=== PATIENT | female | born 1945 | race Caucasian/White ===

== ENCOUNTER 2020-03-28 08:01 | Outpatient (CLI) | payer MEDICARE, BC, SELFPAY ==
--- NOTE | ~2020-03-28 | MR_ITS ---
EXAMINATION: MR brain/brain stem wo/w con EXAM DATE: 03/28/2020 10:40 INDICATION: Repeated falls. TECHNIQUE: Magnetic resonance imaging (MRI) of the brain/brain stem obtained without contrast. Sagit keren T1, axial diffusion, gradient echo (T2*), T1, T2, FLAIR sequences obtained. Patient was then inj ected with 10 cc intravenous Multihance contrast. Axial and coronal postcontrast T1 weighted sequence s obtained. Comparison is made to prior examination from 01/16/2019, 09/02/2010. FINDINGS: There are no areas of restricted diffusion to suggest acute infarction. There is no acute hemorrhage seen on the T2*, a hemosiderin sensitive sequence. No intraparenchymal brain mass lesion. Gas There is mild to moderate periventricular and subcortical T2/FLAIR signal hyperintensity, nons pecific but probably related to small vessel ischemic disease (microangiopathy), with mild interval p rogression. There is ventricular prominence out of proportion to sulci which is suspected most like ly central atrophy rather than hydrocephalus. Normal pressure hydrocephalus cannot be excluded (clin ical triad ataxia/gait disturbance, dementia, urinary incontinence). There are no extra-axial colle ctions. Flow voids are seen in the cerebral arteries on the T2-weighted sequences consistent with th eir expected patency. Patient has had bilateral ocular lens surgery. There is a mass in the superficial lobe of the left parotid measuring 9 mm, could be primary parotid neoplasm or intraparotid lymph node. Margins are well-circumscribed. This appears unchanged compared to 2018, but can't specifically identify it in 2009. IMPRESSION: 1. No acute intracranial findings. 2. Slight progression microangiopathy. 3. Mildly dilated ventricles most likely central atrophy. NPH less likely. 4. Left parotid mass more likely benign histology but recommend ENT consult. Reviewed, dictated and finalized at location A.
[2020-03-28 09:18] LABS: Estimated Glomerular Filt Rate 58
== END 2020-03-28 08:02 | disposition home or self-care (01) ==
LOC: CHSIMG 08:02
PROVIDERS: PCP Family Medicine; Visit Provider Family Medicine
DX: S09.90XA Unspecified injury of head, initial encounter (principal); R29.6 Repeated falls
CPT/HCPCS: 70553; A9577

== ENCOUNTER 2020-04-23 12:45 | Outpatient (CLI) | payer MEDICARE, SELFPAY ==
--- NOTE | ~2020-04-23 | NM_ITS ---
EXAMINATION: ARTEMIO espazra renal scan DATE: 04/23/2020 14:46 INDICATION: Nephrolithiasis. Hydronephrosis. TECHNIQUE: 10.5 mCi Tc-99m MAG3 was administered IV. 40 mg furosemide was administered IV immediatel y afterward. The patient was scanned in the supine position. A posterior abdominal radionuclide angio gram was obtained. A subsequent time course of static images of the kidneys, ureters, and bladder was obtained. COMPARISON: 09/18/2019 FINDINGS: The posterior abdominal radionuclide angiogram and sequential static images show normal size, positio n, and morphology of the the right kidney. There is normal position of the left kidney with unchanged mild to moderate atrophy of the mid and upper left kidney and severe atrophy of the lower pole. Peak renal parenchymal uptake was 11.5 min in left kidney and 11.5 min in right kidney (normal peak 3-5 m inutes). The relative early renal uptake was 22% on the right and mid date% on the left (<40% is abn ormal). No abnormalities of the ureters or bladder are seen. T1/2 for clearance of activity from the left kidney and proximal collecting system was 35 minutes. T1/2 for clearance of activity from the right kidney and proximal collecting system was 11 minutes. Notes on interpretation: T1/2 <10 minutes is normal, 10-15 minutes is low grade obstruction of questi onable clinical significance, 15-20 minutes is partial obstruction that is likely clinically signific ant, >20 minutes is high grade obstruction. Note that false positives may be seen with supine positio jessica, dehydration, severely dilated nonobstructed kidney, atonic collecting system, poor renal functi on, and chronic furosemide use. IMPRESSION: 1. No no significant change in asymmetric decreased left renal function with left kidney contributin g 28% of total renal function. 2. Bilateral delayed renal activity clearance, mild on the right, potentially low-grade obstruction of likely no clinical significance and increased to now severe on the left which could be due to high -grade obstruction with differential as detailed above. Reviewed, dictated and finalized at location A. IMPRESSION: 1. No no significant change in asymmetric decreased left renal function with l eft kidney contributing 28% of total renal function. 2. Bilateral delayed renal activity clearance, mild on the right, potentially low-grade obstruction of likely no clinical significance and increased to now s evere on the left which could be due to high-grade obstruction with differentia l as detailed above.
--- NOTE | ~2020-04-23 | XR_ITS ---
EXAMINATION: XR abdomen/kub 1V INDICATION: Calcium kidney stone TECHNIQUE: Supine views of the abdomen were obtained on 2 radiographs. COMPARISON: 09/18/2019 FINDINGS: There is a stable 8 mm calcification projecting in the left kidney lower pole. No stones ar e identified along the expected courses of the ureters or within the urinary bladder. There are phleb oliths of the pelvis. Calcified atherosclerosis is noted. Vascular stents are present in the common i liac arteries. The bowel gas pattern is normal. Mild hip osteoarthritis is present. IMPRESSION: 1. Likely stable left nephrolithiasis. Reviewed, dictated and finalized at location A.
== END 2020-04-23 12:46 | disposition home or self-care (01) ==
LOC: ANHIMG 12:47
PROVIDERS: PCP Family Medicine; Visit Provider Urology
DX: N20.0 Calculus of kidney (principal); N13.30 Unspecified hydronephrosis
CPT/HCPCS: 74018; 78708; A9562; J1940

== ENCOUNTER 2020-05-11 14:07 | Outpatient (CLI) | payer MEDICARE, BC, SELFPAY ==
--- NOTE | 2020-05-11 14:25 | ECG_ITS ---
Measurements Intervals [place] Rate: 68 P: 67 MO: 172 QRS: -48 QRSD: 158 T: 105 QT: 461 QTc: 493 Interpretive Statements SINUS RHYTHM LEFT AXIS DEVIATION LEFT BUNDLE BRANCH BLOCK BASELINE ARTIFACT- I, II, AVR, AVL, V1 ABNORMAL ECG Electronically Signed On 05-11-2020 15:10:06 CDT by Orville Hoffman D.O.
[2020-05-11 15:27] LABS: Alanine Aminotransferase 100 U/L (14-59); Albumin Level 3.4 g/dL (3.4-5.0); Alkaline Phosphatase 74 U/L (46-116); Anion Gap 10.7 mmol/L (7-16); Aspartate Amino Transferase 51 U/L (15-37); Bilirubin,Total 0.4 mg/dL (0.00-1.00); Blood Urea Nitrogen 20 mg/dL (7-18); Calcium 9.4 mg/dL (8.5-10.1); Carbon Dioxide 32 mmol/L (21-32); Chloride 100 mmol/L (98-108); Estimated Glomerular Filt Rate > 60; Glucose 124 mg/dL (70-99); Magnesium 1.9 mg/dL (1.8-2.4); Osmolality Calculated 291 mOsm/kg (285-295); Potassium 3.7 mmol/L (3.5-5.1); Sodium 139 mmol/L (136-145); Total Protein 6.4 g/dL (6.4-8.2)
[2020-05-11 15:29] LABS: Thyroid Stimulating Hormone Reflex 1.18 u/IU/mL (0.36-3.74)
== END 2020-05-11 14:08 | disposition home or self-care (01) ==
PROVIDERS: PCP Family Medicine; Visit Provider Internal Medicine Cardiovascular Disease
DX: I47.1 Supraventricular tachycardia (principal)
CPT/HCPCS: 36415; 80053; 83735; 84443; 93005

== ENCOUNTER 2020-07-06 09:38 | Outpatient (CLI) | payer MEDICARE, SELFPAY ==
[2020-07-07 14:22] LABS: SARS-CoV-2 RNA PCR Negative
== END 2020-07-06 09:39 | disposition home or self-care (01) ==
LOC: CHSLAB 09:40
PROVIDERS: PCP Family Medicine; Visit Provider Family Medicine
DX: R06.02 Shortness of breath (principal); R07.89 Other chest pain; R05 Cough; Z20.828 Contact with and (suspected) exposure to other viral communicable diseases
CPT/HCPCS: 87635; C9803; U0003

== ENCOUNTER 2020-08-08 09:26 | Outpatient (CLI) | payer MEDICARE, BC, SELFPAY ==
--- NOTE | ~2020-08-08 | MR_ITS ---
EXAMINATION: MR brain/brain stem wo con DATE: 08/08/2020 10:14 INDICATION: Headaches and unspecified abnormality of gait and mobility. TECHNIQUE: Magnetic resonance imaging (MRI) of the brain and brainstem was performed without intraven ous contrast. Sequences included sagittal and axial T1-weighted SE, axial diffusion-weighted FS SE, a xial T2*-weighted GRE, axial T2-weighted FLAIR, and axial T2-weighted FSE. Apparent diffusion coeffic ient (ADC) maps were created. COMPARISON: 03/28/2020 and 01/16/2019 FINDINGS: There are no areas of restricted diffusion to suggest acute infarction. No intracranial hemorrhage or abnormal intracranial mass lesion. There are scattered areas of nonspecific increased T2-weighted si gnal intensity in the cerebral white matter, predominantly involving the deep and periventricular whi te matter. There are no intraparenchymal signal abnormalities seen on the other pulse sequences. Agai n seen is symmetric increased prominence of the ventricles which is out of proportion to the sulci wh ich could be related to central predominant atrophy or normal pressure hydrocephalus. Normal variant cavum septum pellucidum at vergae. There are no abnormal extra-axial fluid collections. Flow voids ar e seen in the cerebral arteries on the T2-weighted sequences consistent with their expected patency. Left vertebral artery is dominant. Changes of bilateral intraocular lens replacement. No interval doris nge in an 11 x 9 mm nodule in the inferior left parotid gland. IMPRESSION: 1. No acute intracranial process. 2. Unchanged mild dilation of the ventricles relative to the sulci most likely central predominant at [facility] but differential would include normal pressure hydrocephalus and would correlate for clinical t chelle of ataxia/gait disturbance, dementia, urinary incontinence. 3. Moderate scattered nonspecific wh ite matter T2 hyperintensity consistent with chronic small vessel ischemic disease. 4. 11 x 9 mm left parotid nodule with no interval change since 01/16/2019 suggesting benign etiology. Reviewed, dictated and finalized at location A. IMPRESSION: 1. No acute intracranial process. 2. Unchanged mild dilation of the ventricles relative to the sulci most likely central predominant atrophy but differential would include normal pressure hydr ocephalus and would correlate for clinical triad of ataxia/gait disturbance, de mentia, urinary incontinence. 3. Moderate scattered nonspecific white matter T2 hyperintensity consistent with chronic small vessel ischemic disease. 4. 11 x 9 mm left parotid nodule with no interval change since 01/16/2019 sugges ting benign etiology.
== END 2020-08-08 09:27 | disposition home or self-care (01) ==
LOC: CHSIMG 09:28
PROVIDERS: PCP Family Medicine; Visit Provider Family Medicine
DX: R26.9 Unspecified abnormalities of gait and mobility (principal); R29.6 Repeated falls; R41.0 Disorientation, unspecified
CPT/HCPCS: 70551

== ENCOUNTER 2020-08-10 14:03 | Outpatient (RCR) | payer MEDICARE, BC, SELFPAY ==
--- NOTE | 2020-08-10 15:13 | PTOPEVAL ---
Thank you for referring Lauryn Romeo to [facility].? The patient is scheduled to be seen for therapy? __3__x/week for 12 visits. Please review, sign, date and return this plan of care JAY. I agree with and certify that the following plan of care is medically necessary. Referring Physician Date Admitting Provider: Attending Provider: Aramis Lane MD Referring Provider: *PT Outpatient Evaluation Start: 08/10/20 14:15 Freq: Status: Active Protocol: Document 08/10/20 14:15 DREW (Rec: 08/10/20 14:47 DREW [id number]) Therapy Assessment Status Assessment Status Assessment Status Evaluation Evaluation Information Problem Diagnosis abnormality of gait and mobility Onset 08/10/19 Subjective Information Pt. reports that she has Query Text:As Reported By Patient/ noticed a decline in balance Family over the past year. she reports that she has fallen to the ground at least 20 times in the past year. she states that she has been using a cane for about 6 months, but is uncertain if she is using the cane correctly. She reports that her goal is to decrease the amount she is falling. Prior Level of Function Activity Level (Last 3 Months) Occupation retired Hand Dominance Left Activity of Daily Living Ability Independent Indoor/Home Mobility Independent Community Mobility Independent Stairs Ability Independent Functional Cognition (Planning, Shopping Independent , Taking Medications) Cooking Yes Cleaning Yes Laundry Yes Shopping Yes Driving Yes Home Setting Cargiver Responsibilities Comment Pt. reports she currently lives alone. She will be moving into an LONG TERM in the next month. Pain Assessment Self Report Self Report Pain Level 0 Pain Score Pain Score 0: Self Report Lower Extremity Muscle Strength Testing General Lower Extremity Strength Gross Lower Extremity Strength bilateral hip flexion 4-/5 bilateral hip extension 4-/5 bilateral knee flexion 4+/5 bilateral knee extension 4+/5 bilateral ankle dorsiflexion 4 +/5 Uppe
--- NOTE | 2020-10-16 11:23 | PCPTNOTE ---
Mrs. Romeo has attended a total of 2 treatment sessions. She has failed to return to the clinic since her last visit on 08/12/20. Refer to the last daily note for the patient discharge status. Thank you for the referral of this patient. Jose Huntley, MPT
== END 2020-08-12 14:50 | disposition home or self-care (01) ==
LOC: CHSPT 14:03
PROVIDERS: PCP Family Medicine; Visit Provider Family Medicine
DX: R26.9 Unspecified abnormalities of gait and mobility (principal); R29.6 Repeated falls
CPT/HCPCS: 97110; 97112; 97161

== ENCOUNTER 2020-09-10 12:53 | Outpatient (CLI) | payer MEDICARE, BC, SELFPAY ==
--- NOTE | ~2020-09-10 | CT_ITS ---
EXAMINATION: CT brain wo con EXAM DATE: 09/10/2020 13:33 INDICATION: Dizziness, memory loss. Frequent falls. TECHNIQUE: Spiral CT of the head was performed without contrast. Axial, coronal and sagittal images were reviewed. The dose-length product (DLP) for this examination was 605.33 mGy-cm. The exposure w as tailored according to patient size, and iterative reconstruction (ASIR) was used as additional dos e reduction technique. There is no prior study for comparison. FINDINGS: There is no acute intraparenchymal hemorrhage. No evidence of intraparenchymal brain mass lesion. No evidence of acute infarction. Please note that initial head CT has limited sensitivity f or small or acute infarctions. There is moderate periventricular and subcortical hypodensity, nonspec ific but probably related to small vessel ischemic disease. There is moderate prominence of the sul ci and ventricles related to cerebral atrophy. There is intracranial carotid arteriosclerosis. The re are no extra-axial collections. There is no mass effect or midline shift. Patient has had bilate ral ocular lens surgery. Soft tissue is unremarkable. The visualized sinuses and mastoid air cells are well aerated. IMPRESSION: 1. No acute intracranial findings. 2. Chronic age related findings. Reviewed, dictated and finalized at location B. 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
== END 2020-09-10 12:54 | disposition home or self-care (01) ==
LOC: CHSIMG 12:57
PROVIDERS: PCP Family Medicine
DX: R26.89 Other abnormalities of gait and mobility (principal)
CPT/HCPCS: 70450

== ENCOUNTER 2020-10-05 14:28 | Outpatient (CLI) | payer MEDICARE, SELFPAY ==
--- NOTE | ~2020-10-05 | MR_ITS ---
EXAMINATION: MR brain/brain stem wo/w con DATE: 10/05/2020 15:45 INDICATION: Brain mass. TECHNIQUE: Magnetic resonance imaging (MRI) of the brain and brainstem was performed without and with 16 mL MultiHance intravenous contrast. Sequences included sagittal and axial T1-weighted FSE, axial diffusion-weighted FS EPI, axial T2*-weighted GRE, axial T2-weighted FLAIR Propeller, and axial T2-we ighted Propeller. Postcontrast sequences included axial, sagittal, and coronal T1-weighted FSE. Appar ent diffusion coefficient (ADC) maps were created. COMPARISON: Brain MRI 08/08/2020, 01/16/2019 FINDINGS: There are scattered areas of nonspecific increased T2-weighted signal intensity in the cere bral white matter and chris. There is no intracranial hemorrhage, acute infarction, or abnormal intrac ranial mass lesion. The ventricles are normal in size. Cavum septum pellucidum and vergae are noted. The paranasal sinuses are clear. There are likely changes of ocular lens replacement surgeries. The m astoid air cells are normal. There is a 10 x 12 cm mass in superficial left parotid gland. IMPRESSION: 1. Stable moderate nonspecific cerebral white matter disease and pontine disease, which likely repres ents chronic small vessel ischemic disease. 2. 10 x 12 mm mass in superficial left parotid gland, stable from 01/16/19. The differential diagnosis includes benign mixed tumor, Warthin tumor, and reactive lymph node. Reviewed, dictated and finalized at location A. 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 Stable moderate nonspecific cerebral white matter disease and pontine diseas e, which likely represents chronic small vessel ischemic disease. 2. 10 x 12 mm mass in superficial left parotid gland, stable from 01/16/19. The differential diagnosis includes benign mixed tumor, Warthin tumor, and reactive lymph node.
[2020-10-05 15:13] LABS: Estimated Glomerular Filt Rate > 60
== END 2020-10-05 14:29 | disposition home or self-care (01) ==
PROVIDERS: PCP Family Medicine
DX: G93.89 Other specified disorders of brain (principal); G91.1 Obstructive hydrocephalus; R93.0 Abnormal findings on diagnostic imaging of skull and head, not elsewhere classified
CPT/HCPCS: 70553; A9577

== ENCOUNTER 2020-11-13 16:49 | Inpatient (IN) | payer MEDICARE, BC, SELFPAY ==
--- NOTE | ~2020-11-13 | CT_ITS ---
EXAMINATION: CTA chest PE protocol EXAM DATE: 11/13/2020 19:07 INDICATION: Chest pain and dyspnea, left lateral chest wall. TECHNIQUE: Spiral CTA of the chest (pulmonary arteries) was performed with 100 cc Omnipaque 350 intr avenous contrast injection. Images were acquired during the pulmonary arterial phase. Coronal maxi mum intensity projection 3D-reconstructions were created by the technologist on dedicated workstation . Axial, coronal and sagittal reformatted images were reviewed. The dose-length product (DLP) for t his examination was 701.54 mGy-cm. The exposure was tailored according to patient size (auto mA exp osure control), and iterative reconstruction (ASIR) was used as additional dose reduction technique. There is no prior study for comparison. FINDINGS: Pulmonary arteries are well opacified and without intraluminal filling defects. No thora cic aortic dissection. There is moderate to large amount of left-sided groundglass density airspace disease, most likely acute infectious process. There is 4 mm right lower lobe nodule on image #[id number], op tional follow-up chest CT in one year. Small left pleural effusion. Probable partial right pneumonect tricia. Tracheobronchial tree is patent. There is prevascular lymph node measuring 1.8 x 1.0 cm probab ly reactive. There is no pneumothorax. Heart normal in size. There is mild coronary arterial theresa cification, arterial sclerosis. Upper abdomen is unremarkable. There is mild thoracic spondylosis without osteoblastic or osteolytic lesions identified. Old left-sided rib fracture. IMPRESSION: 1. Moderate to large amount of left lung groundglass opacity most likely acute infectious process, po ssibly COVID pneumonia. 2. Small right lower lobe nodule most likely granuloma; optional follow-up chest CT. 3. Small left pleural effusion. Reviewed, dictated and finalized at location A. 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 Moderate to large amount of left lung groundglass opacity most likely acute infectious process, possibly COVID pneumonia. 2. Small right lower lobe nodule most likely granuloma; optional follow-up ches t CT. 3. Small left pleural effusion.
[2020-11-13 17:00] VITALS: BP 152/46; PULSE 75; RESP 24; TEMP 37.2; O2SAT 96
--- NOTE | 2020-11-13 17:30 | ECG_ITS ---
Measurements Intervals [place] Rate: 73 P: 71 LA: 172 QRS: -57 QRSD: 157 T: 86 QT: 481 QTc: 533 Interpretive Statements SINUS RHYTHM LEFT AXIS DEVIATION LEFT BUNDLE BRANCH BLOCK BASELINE ARTIFACT- I, II, III, AVR, AVL, AVF, V1, V5-V6 ABNORMAL ECG Electronically Signed On 11-13-2020 18:51:52 TRACK PATROL by Orville Hoffman D.O.
--- NOTE | 2020-11-13 17:59 | ED.SOB ---
HPI - SOB/Dyspnea General Chief Complaint: Shortness of Breath/Dyspnea Stated Complaint: Pain inside hard to breath Source: patient Mode of arrival: ambulatory History of Present Illness HPI Narrative: Pt states this SOB has been gradually coming on for last several weeks, however it has been much more severe since monday. She states that she is very SOB and has a good deal of pain in Left lower chest area. SHe has not had cold or fevers or other problems. She did fall several weeks ago, but doesnt think it is related. She has no nausea or vomiting. She MD elicited complaint: shortness of breath and pain with inspiration Pertinent past history: other (Pleuracy years ago) Onset (ago): day(s) Timing: constant Exacerbating factors: exertion, movement, inspiration and deep breaths Relieving factors: nothing Associated symptoms: pain with inspiration Treatment prior to arrival: none Related Data Home oxygen amount: none Home Medications Medication Instructions Recorded Confirmed pentoxifylline 400 mg 400 mg PO TID 10/07/19 11/13/20 tablet,extended release aspirin 325 mg tablet,delayed 325 mg PO DAILY 10/18/19 11/13/20 release meclizine 25 mg tablet 25 mg PO DAILY tablet 10/18/19 11/13/20 amiodarone 200 mg PO DAILY 11/13/20 11/13/20 pravastatin 40 mg PO DAILY 11/13/20 11/13/20 Allergies Allergy/AdvReac Type Severity Reaction Status Date / Time ciprofloxacin Allergy Severe Rash Verified 07/27/20 14:35 amoxicillin Allergy Unknown Rash Verified 07/27/20 14:35 sulfanilamide Allergy Unknown Rash Verified 07/27/20 14:35 Review of Systems Constitutional: Constitutional: Denies chills, Denies fatigue, Denies fever(s) and Denies weakness Eyes: Eyes: Reports no additional eye complaints ENT: Denies dysphagia, Denies dizziness, Denies epistaxis, Denies nasal congestion and Denies sore throat Cardiovascular: Cardiovascular: Reports chest pain (in lower left chest wall with deep breaths), Denies rapid heart rate, Denies radiating jaw, neck or arm pain and Denies slow heart rate Respiratory: Respiratory: Denies chest congestion, Reports dyspnea and Denies wheezing Gastrointestinal: Gastrointestinal: Reports no additional gastrointestinal complaints Genitourinary: Genitourinary: Reports no additional female genitourinary complaints Musculoskeletal: Musculoskeletal: Reports no additional musculoskeletal complaints Integumentary/Breasts: Skin/Breast: Reports system reviewed and no additional complaints, except as docu Neurologic: Reports system reviewed and no additional complaints, except as documented Psychiatric: Psychiatric: Reports no additional psychiatric complaints Endocrine: Endocrine: Reports no additional endocrine complaints Hematologic/Lymphatic: Hematologic/Lymphatic: Reports no additional hematologic/lymphatic complaints Allergic/Immunologic: Allergic/Immunologic: Reports no additional allergic/immunologic complaints [facility] Past Medical History Medical History Abnormal gait Cervical spondylosis Confusion Decreased renal function Eczema Falls frequently Head injury due to trauma Knee pain, left Family History Family History Mother Hypertension Carcinoma of colon Family history of diabetes mellitus in first degree relative Family history of coronary artery disease Diabetes mellitus, Onset Age: 74 Father Diabetes mellitus, Onset Age: 57 Sibling Diabetes mellitus Family history of malignant neoplasm, Onset Age: 75 Other Family history of malignant neoplasm of breast in first degree relative Social History Social History Smoking status: Former smoker Smoking end date: 11/06/08 Alcohol intake: never Exam Const: General: no acute distress Nutritional Appearance: well no
[2020-11-13 18:15] LABS: Basophils Absolute Auto 0.03 K/mm3 (0.00-0.10); Basophils Percent Auto 0.2 % (0.0-1.0); Eosinophils Absolute Auto 0.09 K/mm3 (0.02-0.50); Eosinophils Percent Auto 0.7 % (1.0-6.0); Hematocrit 38.2 % (35.0-42.0); Hemoglobin 12.9 g/dL (11.7-13.8); Immature Granulocyte Absolute 0.07 K/mm3 (0.00-0.00); Immature Granulocyte Percent A 0.6 % (0.0-0.0); Lymphocytes Absolute Auto 1.03 K/mm3 (1.10-4.50); Lymphocytes Percent Auto 8.1 % (18.0-42.0); Mean Corpuscular HGB Conc 33.8 g/dL (32.0-36.0); Mean Corpuscular Hemoglobin 29.7 pg (27.0-31.0); Mean Platelet Volume 8.9 fl (9.2-11.8); Monocytes Absolute Auto 0.97 K/mm3 (0.10-0.90); Monocytes Percent Auto 7.6 % (2.0-11.0); Neutrophils Absolute Auto 10.5 K/mm3 (1.7-7.2); Neutrophils Percent Auto 82.8 % (50.0-70.0); Platelet Count Result 358 K/mm3 (150-420); Red Blood Count 4.34 M/mm3 (4.20-5.40); Red Cell Distribution Width 12.6 % (11.6-14.4); White Blood Count 12.7 K/mm3 (4.8-10.8)
[2020-11-13 18:31] LABS: Influenza Control Valid (Valid)
[2020-11-13 18:32] LABS: BNP 285 pg/mL (0-100)
[2020-11-13 18:36] LABS: Alanine Aminotransferase 37 U/L (14-59); Albumin Level 2.6 g/dL (3.4-5.0); Alkaline Phosphatase 78 U/L (46-116); Anion Gap 9 mmol/L (8-16); Aspartate Amino Transferase 22 U/L (15-37); Bilirubin,Total 0.4 mg/dL (0.00-1.00); Blood Urea Nitrogen 15 mg/dL (7-18); Carbon Dioxide 29 mmol/L (21-32); Chloride 94 mmol/L (98-108); Estimated CRCL calculation 57 ml/min; Estimated Glomerular Filt Rate > 60; Glucose 97 mg/dL (70-99); Osmolality Calculated 274 mOsm/kg (285-295); Potassium 3.3 mmol/L (3.5-5.1); Sodium 132 mmol/L (136-145); Total Protein 7.2 g/dL (6.4-8.2)
[2020-11-13 18:41] LABS: Troponin I 10.4 ng/L (0.00-60.4)
[2020-11-13 18:44] LABS: D Dimer 0.89 mg/L (0.19-0.50)
[2020-11-13 19:14] LABS: Add Urine Microscopic? YES; Bilirubin Urine Negative (Negative); Blood Urine Negative (Negative); Color Urine Yellow (Yellow); Glucose Urine UA Negative (Negative); Ketones Urine Trace (Negative); Leukocyte Esterase Ur Negative LEU/UL (Negative); Nitrate Urine Positive (Negative); Protein Urine 1+ (Negative); Urobilinogen Urine 0.2 mg/dL (0.2-1.0); pH Urine 6.5 (5.0-8.0)
[2020-11-13 19:22] LABS: Appearance Urine Cloudy (Clear); RBC Urine None seen /hpf (0-2)
[2020-11-13 19:23] LABS: Squamous Epithelial Cell Urine Moderate /hpf (Few)
[2020-11-13 19:24] LABS: Bacteria Urine 4+ /hpf
[2020-11-13 19:28] LABS: Erythrocyte Sedimentation Rate 47 mm/hr (0-20)
[2020-11-13 19:37] VITALS: BP 154/88; PULSE 81; RESP 22; TEMP 37; O2SAT 95
[2020-11-13 19:49] VITALS: BP 160/88; PULSE 92; RESP 24; O2SAT 88
[2020-11-13 19:55] LABS: SARS-CoV-2 Ag Negative (Negative)
[2020-11-13 19:55] LABS: Alanine Aminotransferase 35 U/L (14-59)
--- NOTE | 2020-11-13 20:05 | PC.NURSE ---
2nd floor notified need for admit, will call when room ready, family aware of wait
[2020-11-13 21:05] VITALS: BP 139/81; PULSE 84; RESP 24; TEMP 36.6; O2SAT 98
[2020-11-13 21:14] VITALS: BP 160/70; PULSE 94; RESP 24; TEMP 37; O2SAT 96
--- NOTE | 2020-11-13 21:15 | ADMGEN ---
This patient, Lauryn Romeo, was admitted to 2nd Floor Room 212-1. Patient oriented to hospital policies and general routines including ID bracelet, bed and alarms, visiting hours, pain management, procedures, bathroom and other care routines, personal items, smoking policy, room service/diet, and visiting hours. Patient encouraged to report perceived risks to care and to ask questions if they do not understand what they are told or what they should do.
--- NOTE | 2020-11-13 21:36 | PC.NURSE ---
Denice notified of admit & r/o eleanorid
[2020-11-13] MEDS: REMDESIVIR 200 MG/NS 250 ML 200 MG/250 ML BAG 250 MG IVPB (22:14)
[2020-11-13] MEDS: ENOXAPARIN 30 MG/0.3 ML SYRINGE SUB-Q (22:14)
[2020-11-13 23:30] VITALS: BP 144/61; PULSE 75; RESP 20; TEMP 36.6; O2SAT 95
[2020-11-13] MEDS: HYDROcodone/acetaminophen (*CRX) 5-325 MG TABLET 1 TAB PO (23:35)
[2020-11-14] VITALS (8 sets, daily range): BP systolic 140–185; BP diastolic 60–76; PULSE 68–88; RESP 18–20; TEMP 36.2–36.4; O2SAT 93–95
[2020-11-14 06:24] LABS: Alanine Aminotransferase 31 U/L (14-59)
--- NOTE | 2020-11-14 08:47 | PM.IMHP ---
H&P: HPI History of Present Illness Date/Time: 11/14/20 08:47 Chief Complaint: shortness of breath headache left side pain Narrative: Lauryn Romeo is a 75 year old female [facility] Past Medical History Medical History Abnormal gait Cervical spondylosis Confusion Decreased renal function Eczema Falls frequently Head injury due to trauma Knee pain, left Family History Family History Mother Hypertension Carcinoma of colon Family history of diabetes mellitus in first degree relative Family history of coronary artery disease Diabetes mellitus, Onset Age: 74 Father Diabetes mellitus, Onset Age: 57 Sibling Diabetes mellitus Family history of malignant neoplasm, Onset Age: 75 Other Family history of malignant neoplasm of breast in first degree relative Social History Social History Smoking packs per day: 2 Smoking cigarettes per day: 40.0 Years smoked: 56 Smoking pack-years: 112.00 Smoking status: Former smoker Tobacco type: cigarettes Smoking end date: 11/06/08 Alcohol intake: never Substance use: never Gender identity (if verbalized by the patient): Female Spiritual care concerns: No Meds Home Medications and Allergies Home Medications Medication Instructions Recorded Confirmed Type pentoxifylline 400 mg 400 mg PO TID 10/07/19 11/13/20 History tablet,extended release aspirin 325 mg tablet,delayed 325 mg PO DAILY 10/18/19 11/13/20 History release meclizine 25 mg tablet 25 mg PO DAILY tablet 10/18/19 11/13/20 History hydrochlorothiazide 50 mg tablet 50 mg PO DAILY #90 tablet 07/20/20 11/13/20 Rx triamcinolone acetonide 0.5 % 1 applic TOPICAL BID #80 gm 07/27/20 11/13/20 Rx topical cream dextroamphetamine-amphetamine ER 20 mg PO QAM #30 cap 10/18/20 11/13/20 Rx 20 mg 24hr capsule,extend release ramipril 10 mg capsule 10 mg PO DAILY #90 cap 10/18/20 11/13/20 Rx fluoxetine 20 mg tablet 40 mg PO DAILY #180 tablet 10/26/20 11/13/20 Rx amiodarone 200 mg PO DAILY 11/13/20 11/13/20 History pravastatin 40 mg PO DAILY 11/13/20 11/13/20 History Allergies Allergy/AdvReac Type Severity Reaction Status Date / Time ciprofloxacin Allergy Severe Rash Verified 07/27/20 14:35 amoxicillin Allergy Unknown Rash Verified 07/27/20 14:35 sulfanilamide Allergy Unknown Rash Verified 07/27/20 14:35 Vital Signs Vital Signs - 24 hr 11/13/20 17:00 11/13/20 19:37 11/13/20 19:49 Temperature 99.0 F 98.6 F Pulse Rate 75 81 92 Respiratory Rate 24 H 22 H 24 H Blood Pressure 152/46 H 154/88 H 160/88 H Pulse Oximetry 96 95 88 L 11/13/20 21:05 11/13/20 21:14 11/13/20 23:30 Temperature 98 F 98.6 F 98 F Pulse Rate 84 94 75 Respiratory Rate 24 H 24 H 20 Blood Pressure 139/81 160/70 H 144/61 H Pulse Oximetry 98 96 95 11/14/20 04:00 11/14/20 04:35 11/14/20 08:00 Temperature 97.2 F L Pulse Rate 68 69 76 Respiratory Rate 20 Blood Pressure 140/63 Pulse Oximetry 95 H&P: Results Labs Labs: Short CBC 11/13/20 Range/Units 18:03 WBC 12.7 H (4.8-10.8) K/mm3 Hgb 12.9 (11.7-13.8) g/dL Hct 38.2 (35.0-42.0) % Plt Count 358 (150-420) K/mm3 BMP 11/13/20 18:03 Sodium 132 L Potassium 3.3 L Chloride 94 L Carbon Dioxide 29 BUN 15 Creatinine 0.75 Glucose 97 Calcium 9.0 Cardiac Enzymes 11/13/20 Range/Units 18:03 Troponin I 10.4 (0.00-60.4) ng/L Liver Function 11/13/20 11/13/20 11/14/20 Range/Units 18:03 19:42 05:54 Total Bilirubin 0.4 (0.00-1.00) mg/dL AST 22 (15-37) U/L ALT 37 35 31 (14-59) U/L Alkaline Phosphatase 78 (46-116) U/L Albumin 2.6 L (3.4-5.0) g/dL Urine 11/13/20 Range/Units 17:30 Urine Color Yellow (Yellow) Urine Appearance Cloudy A (Clear) Urine pH
[2020-11-14] MEDS: PRAVASTATIN SODIUM 20 MG TABLET 40 MG PO (09:03)
[2020-11-14] MEDS: MECLIZINE HCL 25 MG TABLET PO (09:04)
[2020-11-14] MEDS: FLUoxetine HCL 10 MG CAPSULE 20 MG PO ×2 (09:04→16:46)
[2020-11-14] MEDS: PENTOXIFYLLINE 400 MG TABCR PO ×2 (09:04→16:46)
[2020-11-14] MEDS: ASPIRIN 325 MG ENTERIC TABLET PO (09:04)
[2020-11-14] MEDS: hydroCHLOROthiazide 25 MG TABLET 50 MG PO (09:04)
[2020-11-14] MEDS: AMIODARONE HCL 200 MG TABLET PO ×2 (09:04→16:46)
[2020-11-14] MEDS: DEXAMETHASONE SOD PHOS INJ 4 MG/ML VIAL 6 MG IV PUSH (09:05)
[2020-11-14] MEDS: ENOXAPARIN 30 MG/0.3 ML SYRINGE SUB-Q ×2 (09:05→21:43)
[2020-11-14] MEDS: POTASSIUM CHLORIDE 20 MEQ TABLET PO (09:06)
[2020-11-14] MEDS: SODIUM CHLORIDE 1 GM TABLET PO (09:06)
[2020-11-14] MEDS: REMDESIVIR 100 MG/NS 250 ML 100 MG/250 ML BAG 250 MG IVPB (20:10)
[2020-11-14] MEDS: ramipriL 5 MG CAPSULE 10 MG PO (21:58)
[2020-11-14] MEDS: TRIAMCINOLONE ACET 0.1% CREAM 15 GM TUBE 1 APPLIC TOPICAL (21:58)
[2020-11-14] MEDS: DOXYCYCLINE IV 100 MG in DEXTROSE 5% 100 ML IVPB (22:37)
[2020-11-15] VITALS (9 sets, daily range): BP systolic 132–166; BP diastolic 57–73; PULSE 69–78; RESP 18–20; TEMP 36.1–36.6; O2SAT 92–96
[2020-11-15 06:25] LABS: Basophils Absolute Auto 0.02 K/mm3 (0.00-0.10); Basophils Percent Auto 0.1 % (0.0-1.0); Eosinophils Absolute Auto 0.01 K/mm3 (0.02-0.50); Eosinophils Percent Auto 0.1 % (1.0-6.0); Hematocrit 35.3 % (35.0-42.0); Immature Granulocyte Absolute 0.15 K/mm3 (0.00-0.00); Immature Granulocyte Percent A 0.9 % (0.0-0.0); Lymphocytes Absolute Auto 0.63 K/mm3 (1.10-4.50); Lymphocytes Percent Auto 3.9 % (18.0-42.0); Mean Corpuscular Hemoglobin 29.9 pg (27.0-31.0); Mean Corpuscular Volume 87.8 fL (78.0-102.0); Mean Platelet Volume 9.2 fl (9.2-11.8); Monocytes Percent Auto 6.3 % (2.0-11.0); Neutrophils Absolute Auto 14.1 K/mm3 (1.7-7.2); Neutrophils Percent Auto 88.7 % (50.0-70.0); Platelet Count Result 387 K/mm3 (150-420); Red Blood Count 4.02 M/mm3 (4.20-5.40); Red Cell Distribution Width 12.4 % (11.6-14.4)
[2020-11-15 07:00] LABS: Alanine Aminotransferase 31 U/L (14-59); Albumin Level 2.3 g/dL (3.4-5.0); Alkaline Phosphatase 74 U/L (46-116); Anion Gap 9 mmol/L (8-16); Aspartate Amino Transferase 23 U/L (15-37); Bilirubin,Total 0.3 mg/dL (0.00-1.00); Blood Urea Nitrogen 14 mg/dL (7-18); Calcium 8.9 mg/dL (8.5-10.1); Carbon Dioxide 27 mmol/L (21-32); Chloride 98 mmol/L (98-108); Estimated CRCL calculation 66 ml/min; Estimated Glomerular Filt Rate > 60; Glucose 115 mg/dL (70-99); Osmolality Calculated 279 mOsm/kg (285-295); Potassium 3.6 mmol/L (3.5-5.1); Sodium 134 mmol/L (136-145); Total Protein 5.8 g/dL (6.4-8.2)
[2020-11-15] MEDS: FLUoxetine HCL 10 MG CAPSULE 20 MG PO ×2 (09:57→17:00)
[2020-11-15] MEDS: SODIUM CHLORIDE 1 GM TABLET PO (09:58)
[2020-11-15] MEDS: MECLIZINE HCL 25 MG TABLET PO (09:58)
[2020-11-15] MEDS: AMIODARONE HCL 200 MG TABLET PO ×2 (09:58→17:00)
[2020-11-15] MEDS: PENTOXIFYLLINE 400 MG TABCR PO ×2 (09:58→17:00)
[2020-11-15] MEDS: PRAVASTATIN SODIUM 20 MG TABLET 40 MG PO (09:58)
[2020-11-15] MEDS: hydroCHLOROthiazide 25 MG TABLET 50 MG PO (09:58)
[2020-11-15] MEDS: ASPIRIN 325 MG ENTERIC TABLET PO (09:58)
[2020-11-15] MEDS: DEXAMETHASONE SOD PHOS INJ 4 MG/ML VIAL 6 MG IV PUSH (09:59)
[2020-11-15] MEDS: DOXYCYCLINE IV 100 MG in DEXTROSE 5% 100 ML IVPB ×2 (09:59→22:48)
[2020-11-15] MEDS: ENOXAPARIN 30 MG/0.3 ML SYRINGE SUB-Q ×2 (09:59→21:03)
--- NOTE | 2020-11-15 13:05 | PM.IMPN ---
Progress Note: A&P Assessment and Plan (1) UTI (urinary tract infection): Code(s): N39.0 - Urinary tract infection, site not specified Status: Acute Assessment and Plan: 11/14/2020 patient started on Rocephin in the ER and will continue this, monitoring for urine culture and sensitivity and if needed will make adjustments to antibiotics 11/15/2020 urine culture still pending continue with Rocephin patient taking oral fluids well doxycycline added (2) Hypoxia: Code(s): R09.02 - Hypoxemia Status: Acute Assessment and Plan: 11/14/2020 patient was hypoxic in the ER started on nasal cannula supplemental oxygen on the floor she is now 1 L nasal cannula SpO2 > 95%, will continue to monitor make adjustments as needed especially given the fact COVID positive 11/15/2020 patient currently on 2 L nasal cannula with SpO2 greater than 92% (3) Pneumonia: Qualifiers: Laterality: left Lung location: lower lobe of lung Pneumonia type: due to unspecified organism Qualified Code(s): J18.9 - Pneumonia, unspecified organism Code(s): J18.9 - Pneumonia, unspecified organism Status: Acute Assessment and Plan: 11/14/2020 pneumonia is likely related to viral infection of COVID however patient is on Rocephin in this should help to cover, patient is also taking Remdesivir and Decadron 11/15/2020 continue with outlined regiment (4) Suspected 2019-nCoV infection: Code(s): Z20.822 - Contact with and (suspected) exposure to COVID-19 Status: Acute Assessment and Plan: 11/14/2020 patient is person under investigation for COVID due to hypoxia shortness of breath headaches and abdominal pain, patient started on COVID recommendations protocol, Lovenox, supplemental oxygen 11/15/2020 COVID test still pending continue with regimen (5) Hypertension: Code(s): I10 - Essential (primary) hypertension Status: Acute Assessment and Plan: 11/14/2020 continue with home medications make adjustments as necessary monitor vital signs 11/15/2020 no changes made at this time (6) Anxiety: Code(s): F41.9 - Anxiety disorder, unspecified Status: Acute Assessment and Plan: 11/14/2020 will continue home medication of fluoxetine, patient does appear anxious, she has verbalized that she would rather go home, it was explained that she would not be able to get the treatment there that she would hear, will consider adding an additional antianxiety medication to assist patient with her anxiety of being hospitalized 11/15/2020 patient still seems a little anxious, family is to bring patient's Adderall, ordered Xanax p.r.n. 3 times a day Subjective Date/time seen: 11/15/20 13:05 patient admits that she does get short of breath when walking to the restroom back and admits that she does take her oxygen off when doing so. Patient admits that she is being stubborn about wanting to stay in the hospital verses her desire to go home. Dr. underwood and I along with nurse Kay discussed the benefits of the patient's staying and continuing treatment. Patient did state she understood. Patient denies any chest pain at this time no abdominal issues no urinary or bowel movement issues. Review of Systems Constitutional: Constitutional: Reports no additional constitutional complaints, Denies body ache(s), Denies chills, Denies fever(s) and Reports headache(s) (Occasional, Tylenol helps) Cardiovascular: Cardiovascular: Reports no additional cardiovascular complaints, Denies chest pain, Denies chest pain at rest and Denies chest pain with activity Respiratory: Respiratory: Reports no additional respiratory complaints, Denies dyspnea and Reports dyspnea on exertion Gastrointestinal: Gastrointestinal: Reports no additional gastrointestinal complaints Genitourinary: Genitourinary: Reports no additional female genitourinary complaints Exam Const: General: cooperative, comfortable, no acute distress, alexandra
[2020-11-15] MEDS: REMDESIVIR 100 MG/NS 250 ML 100 MG/250 ML BAG 250 MG IVPB (20:36)
[2020-11-15] MEDS: ramipriL 5 MG CAPSULE 10 MG PO (21:04)
[2020-11-15] MEDS: TRIAMCINOLONE ACET 0.1% CREAM 15 GM TUBE 1 APPLIC TOPICAL (21:04)
[2020-11-16] VITALS (8 sets, daily range): BP systolic 135–156; BP diastolic 62–78; PULSE 70–98; RESP 20–22; TEMP 36.2–36.7; O2SAT 92–96
[2020-11-16 06:10] LABS: Hematocrit 37.8 % (35.0-42.0); Hemoglobin 12.2 g/dL (11.7-13.8); Mean Corpuscular HGB Conc 32.3 g/dL (32.0-36.0); Mean Corpuscular Hemoglobin 28.1 pg (27.0-31.0); Mean Corpuscular Volume 87.1 fL (78.0-102.0); Platelet Count Result 448 K/mm3 (150-420); Red Blood Count 4.34 M/mm3 (4.20-5.40); Red Cell Distribution Width 12.5 % (11.6-14.4); White Blood Count 18.9 K/mm3 (4.8-10.8)
[2020-11-16 06:24] LABS: Anion Gap 9 mmol/L (8-16); Aspartate Amino Transferase 24 U/L (15-37); Blood Urea Nitrogen 16 mg/dL (7-18); Calcium 9.2 mg/dL (8.5-10.1); Carbon Dioxide 26 mmol/L (21-32); Chloride 97 mmol/L (98-108); Estimated CRCL calculation 56 ml/min; Estimated Glomerular Filt Rate > 60; Glucose 125 mg/dL (70-99); Osmolality Calculated 276 mOsm/kg (285-295); Potassium 3.4 mmol/L (3.5-5.1); Sodium 132 mmol/L (136-145)
[2020-11-16 06:25] LABS: Alanine Aminotransferase 31 U/L (14-59)
[2020-11-16] MEDS: HYDROcodone/acetaminophen (*CRX) 5-325 MG TABLET 1 TAB PO (07:54)
[2020-11-16] MEDS: ASPIRIN 325 MG ENTERIC TABLET PO (08:22)
[2020-11-16] MEDS: AMIODARONE HCL 200 MG TABLET PO ×2 (08:22→17:26)
[2020-11-16] MEDS: hydroCHLOROthiazide 25 MG TABLET 50 MG PO (08:22)
[2020-11-16] MEDS: PENTOXIFYLLINE 400 MG TABCR PO ×2 (08:22→17:26)
[2020-11-16] MEDS: SODIUM CHLORIDE 1 GM TABLET PO ×3 (08:22→17:26)
[2020-11-16] MEDS: PRAVASTATIN SODIUM 20 MG TABLET 40 MG PO (08:22)
[2020-11-16] MEDS: MECLIZINE HCL 25 MG TABLET PO (08:22)
[2020-11-16] MEDS: ENOXAPARIN 30 MG/0.3 ML SYRINGE SUB-Q ×2 (08:23→20:23)
[2020-11-16] MEDS: HOME MEDICATION 1 EACH PO (08:23)
[2020-11-16] MEDS: DEXAMETHASONE SOD PHOS INJ 4 MG/ML VIAL 6 MG IV PUSH (08:23)
[2020-11-16] MEDS: FLUoxetine HCL 10 MG CAPSULE 20 MG PO ×2 (08:23→17:26)
[2020-11-16] MEDS: DOXYCYCLINE IV 100 MG in DEXTROSE 5% 100 ML IVPB ×2 (08:25→20:22)
--- NOTE | 2020-11-16 10:02 | PM.IMPN ---
Progress Note: A&P Assessment and Plan (1) UTI (urinary tract infection): Code(s): N39.0 - Urinary tract infection, site not specified <Benjamin WooELIANE Galicia - Last Filed: 11/16/20 11:22> Status: Acute <Benjamin BerkowitzELIANE Galicia - Last Filed: 11/16/20 11:22> Assessment and Plan: 11/14/2020 patient started on Rocephin in the ER and will continue this, monitoring for urine culture and sensitivity and if needed will make adjustments to antibiotics 11/15/2020 urine culture still pending continue with Rocephin patient taking oral fluids well doxycycline added 11/16/2020 positive for Klebsiella aerogenes sensitivity to Rocephin <ELIANE Guo - Last Filed: 11/16/20 11:22> (2) Hypoxia: Code(s): R09.02 - Hypoxemia <ELIANE Guo - Last Filed: 11/16/20 11:22> Status: Acute <ELIANE Guo - Last Filed: 11/16/20 11:22> Assessment and Plan: 11/14/2020 patient was hypoxic in the ER started on nasal cannula supplemental oxygen on the floor she is now 1 L nasal cannula SpO2 > 95%, will continue to monitor make adjustments as needed especially given the fact COVID positive 11/15/2020 patient currently on 2 L nasal cannula with SpO2 greater than 92% 11/16/2020 continue with 2 L nasal cannula and encourage patient to keep the oxygen on when she walks to the restroom <ELIANE Guo - Last Filed: 11/16/20 11:22> (3) Pneumonia: Qualifiers: Laterality: left Lung location: lower lobe of lung Pneumonia type: due to unspecified organism Qualified Code(s): J18.9 - Pneumonia, unspecified organism <ELIANE Guo - Last Filed: 11/16/20 11:22> Code(s): J18.9 - Pneumonia, unspecified organism <ELIANE Guo - Last Filed: 11/16/20 11:22> Status: Acute <ELIANE Guo Last Filed: 11/16/20 11:22> Assessment and Plan: 11/14/2020 pneumonia is likely related to viral infection of COVID however patient is on Rocephin and this should help to cover UTI, patient is also taking Remdesivir and Decadron 11/15/2020 continue with outlined regiment 11/16/2020 ... <Benjamin ELIANE Quigley - Last Filed: 11/16/20 11:22> (4) Suspected 2019-nCoV infection: Code(s): Z20.822 - Contact with and (suspected) exposure to COVID-19 <ELIANE Guo - Last Filed: 11/16/20 11:22> Status: Acute <Benjamin WooELIANE Galicia - Last Filed: 11/16/20 11:22> Assessment and Plan: 11/14/2020 patient is person under investigation for COVID due to hypoxia shortness of breath headaches and abdominal pain, patient started on COVID recommendations protocol, Lovenox, supplemental oxygen 11/15/2020 COVID test still pending continue with regimen 11/16/2020 anticipate COVID results will be available today, liver enzymes stable and will continue to monitor <ELIANE Guo - Last Filed: 11/16/20 11:22> (5) Hypertension: Code(s): I10 - Essential (primary) hypertension <ELIANE Guo - Last Filed: 11/16/20 11:22> Status: Acute <ELIANE Guo - Last Filed: 11/16/20 11:22> Assessment and Plan: 11/14/2020 continue with home medications make adjustments as necessary monitor vital signs 11/15/2020 no changes made at this time 11/16/2020 continue with current regimen, vital signs have been stable <ELIANE Guo - Last Filed: 11/16/20 11:22> (6) Anxiety: Code(s): F41.9 - Anxiety disorder, unspecified <ELIANE Guo - Last Filed: 11/16/20 11:22> Status: Acute <Benjamin Taylor APN-C - Last Filed: 11/16/20 11:22> Assessment and Plan: 11/14/2020 will continue home medication of fluoxetine, patient does appear anxious, she has verbalized that she would rather go home, it was explained that she would not be able to get the treatment there that she would hear, will consider adding an additional antianxiety m
[2020-11-16] MEDS: POTASSIUM CHLORIDE 20 MEQ TABLET PO (10:51)
[2020-11-16 19:06] LABS: SARS-CoV-2 RNA PCR Negative
[2020-11-16] MEDS: REMDESIVIR 100 MG/NS 250 ML 100 MG/250 ML BAG 250 MG IVPB (20:20)
[2020-11-16] MEDS: ramipriL 5 MG CAPSULE 10 MG PO (20:23)
[2020-11-16] MEDS: ALPRAZolam (*CRX) 0.25 MG TABLET PO (20:23)
--- NOTE | 2020-11-16 20:27 | PC.NURSE ---
notified that patient's covid test came back negative. Patient to be moved to room 205.
[2020-11-16] MEDS: TRIAMCINOLONE ACET 0.1% CREAM 15 GM TUBE 1 APPLIC TOPICAL (20:56)
--- NOTE | 2020-11-16 23:45 | PC.NURSE ---
Pt resting per bed without complaint. States she is no more SOB than she usually is. States she refuses to wear a CPAP. Sao2 90% on RA. Pt states that is normal. A&Ox3. Has no complaint. IV access attempted x2 in RFA without success. Sites without redness, edema or drainage. PT tolerated well. Reminded to call with needs.
[2020-11-17] VITALS: BP 130/61; PULSE 73; RESP 20; TEMP 36.9; O2SAT 90
[2020-11-17 03:37] VITALS: PULSE 76
--- NOTE | 2020-11-17 05:36 | PC.NURSE ---
Sleeping per bed. Respirations even and unlabored. Appears comfortable.
[2020-11-17 05:51] LABS: Hematocrit 36.8 % (35.0-42.0); Hemoglobin 12.4 g/dL (11.7-13.8); Mean Corpuscular HGB Conc 33.7 g/dL (32.0-36.0); Mean Corpuscular Hemoglobin 29.5 pg (27.0-31.0); Mean Corpuscular Volume 87.4 fL (78.0-102.0); Mean Platelet Volume 9.1 fl (9.2-11.8); Platelet Count Result 442 K/mm3 (150-420); Red Blood Count 4.21 M/mm3 (4.20-5.40); Red Cell Distribution Width 12.7 % (11.6-14.4); White Blood Count 18.4 K/mm3 (4.8-10.8)
[2020-11-17 06:14] LABS: Alanine Aminotransferase 34 U/L (14-59); Anion Gap 9 mmol/L (8-16); Blood Urea Nitrogen 17 mg/dL (7-18); Calcium 8.7 mg/dL (8.5-10.1); Carbon Dioxide 26 mmol/L (21-32); Chloride 98 mmol/L (98-108); Estimated CRCL calculation 64 ml/min; Estimated Glomerular Filt Rate > 60; Glucose 102 mg/dL (70-99); Osmolality Calculated 277 mOsm/kg (285-295); Sodium 133 mmol/L (136-145)
[2020-11-17 08:00] VITALS: BP 144/59; PULSE 78; PULSE 80; RESP 20; TEMP 36.8; O2SAT 90
[2020-11-17] MEDS: ASPIRIN 325 MG ENTERIC TABLET PO (09:18)
[2020-11-17 09:19] VITALS: PULSE 78
[2020-11-17] MEDS: hydroCHLOROthiazide 25 MG TABLET 50 MG PO (09:19)
[2020-11-17] MEDS: AMIODARONE HCL 200 MG TABLET PO (09:19)
[2020-11-17] MEDS: SODIUM CHLORIDE 1 GM TABLET PO (09:19)
[2020-11-17] MEDS: PRAVASTATIN SODIUM 20 MG TABLET 40 MG PO (09:23)
[2020-11-17] MEDS: FLUoxetine HCL 10 MG CAPSULE 20 MG PO (09:23)
[2020-11-17] MEDS: ENOXAPARIN 30 MG/0.3 ML SYRINGE SUB-Q (09:23)
[2020-11-17] MEDS: MECLIZINE HCL 25 MG TABLET PO (09:23)
[2020-11-17] MEDS: PENTOXIFYLLINE 400 MG TABCR PO (09:23)
--- NOTE | 2020-11-17 11:04 | PM.DS ---
DS: Admitting Diagnosis Admitting Diagnosis Admitting Diagnosis: Urinary tract infection, pneumonia DS: Discharge Diagnosis Discharge Diagnosis (1) UTI (urinary tract infection): Qualifiers: Hematuria presence: without hematuria Urinary tract infection type: site unspecified Qualified Code(s): N39.0 - Urinary tract infection, site not specified Code(s): N39.0 - Urinary tract infection, site not specified Status: Acute Assessment and Plan: Patient blood culture indicates the growth of K. aerogenes sensitive to cefdinir. Patient currently on Rocephin Patient will discharge home with cefdinir (2) Hyponatremia: Code(s): E87.1 - Hypo-osmolality and hyponatremia Status: Acute Assessment and Plan: Has improved since admission but still below normal limits Patient will discharge home with a short dose of sodium chloride pills and a repeat CMP with results to go to her primary care physician (3) Anxiety: Code(s): F41.9 - Anxiety disorder, unspecified Status: Acute Assessment and Plan: Continue home medication (4) Hypertension: Qualifiers: Hypertension type: essential hypertension Qualified Code(s): I10 - Essential (primary) hypertension Code(s): I10 - Essential (primary) hypertension Status: Acute Assessment and Plan: Stable Continue home medication (5) Hypoxia: Code(s): R09.02 - Hypoxemia Status: Acute Assessment and Plan: Resolved Patient has a history of lung CA status post right upper lobectomy On admission patient required supplementary oxygen patient currently on room oxygen since yesterday (6) Pneumonia: Qualifiers: Laterality: left Lung location: lower lobe of lung Pneumonia type: due to unspecified organism Qualified Code(s): J18.9 - Pneumonia, unspecified organism Code(s): J18.9 - Pneumonia, unspecified organism Status: Acute Assessment and Plan: Patient's WBC elevated on discharge secondary to the use of steroids Chest x-ray indicates Moderate to large amount of left lung groundglass opacity most likely acute infectious process Patient will discharge home with cefdinir (7) Suspected 2019-nCoV infection: Code(s): Z20.822 - Contact with and (suspected) exposure to COVID-19 Status: Acute Assessment and Plan: Results negative DS: Summary Hospital Course Reason for hospitalization: Shortness of breath/dyspnea Hospital Course: This is a 75-year-old female who presented to our ED with complaints of shortness of breath and dyspnea patient noted that while she was breathing she experienced pain. Patient had been experiencing shortness of breath for the last several weeks with pain to her left lower chest. Patient was tested for Covid and treated with remdesivir and dexamethasone both were discontinued today due to patient's negative Covid testing. Her CTA did indicate Moderate to large amount of left lung groundglass opacity most likely acute infectious process. Patient is currently receiving IV Rocephin. She will discharge home with cefdinir to treat her pneumonia as well as her urinary tract infection. The patient denies CP, palpitation, extremity numbness, lightheadedness, dizziness, constipation, diarrhea, chills, or fever. Patient notes that her condition has improved and she agrees that she is ready for discharge patient continues to have shortness of breath she does have a history of lung CA status post lobectomy. This document was completed by using [employer] Direct speech recognition software, therefore track man variances may occur. Despite proofreading, typographical errors may also occur. Time Spent with Patient Time attestation: Total time spent providing and/or coordinating discharge services:60 Exam Narrative: Exam Narrative: GENERAL: This is a well-nourished, well-developed patient, in no apparent distress. LEIGH
[2020-11-17 12:00] VITALS: BP 136/62; PULSE 76; PULSE 78; RESP 20; TEMP 36.4; O2SAT 93
--- NOTE | 2020-11-18 13:33 | PC.NURSE ---
Pt states she received and understood her discharge instructions. Pt also states I had excellent care and was very impressed with the hospital .
== END 2020-11-17 13:45 | DRG 194 ==
LOC: CHSED 19:51 → CHS2ND 20:05
PROVIDERS: Emergency Medicine; Nurse Practitioner Family; Admitting Provider Emergency Medicine; Emergency Provider Emergency Medicine; PCP Family Medicine; Visit Provider Emergency Medicine
DX: J18.9 Pneumonia, unspecified organism (principal); N39.0 Urinary tract infection, site not specified; E87.1 Hypo-osmolality and hyponatremia; M47.812 Spondylosis without myelopathy or radiculopathy, cervical region; R41.0 Disorientation, unspecified; R29.6 Repeated falls; Z20.828 Contact with and (suspected) exposure to other viral communicable diseases; Z80.43 Family history of malignant neoplasm of testis; Z80.3 Family history of malignant neoplasm of breast; Z87.891 Personal history of nicotine dependence
CPT/HCPCS: 36415; 71275; 80048; 80053; 81001; 83880; 84450; 84460; 84484; 85025; 85027; 85380; 85652; 87077; 87086; 87088; 87186; 87426; 87804; 93005; 96366; 96367; 96372; 96375; 96376; 99285; A9270; C9803; G0378; J0696; J1100; J1650; Q9965; Q9967; U0003

== ENCOUNTER 2020-11-19 10:50 | Inpatient (IN) | payer MEDICARE, BC, SELFPAY ==
[2020-11-19] VITALS (12 sets, daily range): BP systolic 121–154; BP diastolic 44–89; PULSE 74–80; RESP 16–22; TEMP 36.4–37.4; O2SAT 65–99; BMI 33.1
--- NOTE | ~2020-11-19 | XR_ITS ---
EXAMINATION: XR chest 1V portable EXAM DATE: 11/19/2020 11:29 INDICATION: Dyspnea, shortness of breath, low oxygen saturation. TECHNIQUE: Portable AP frontal chest x-ray was obtained. Comparison is made to prior examination from 05/08/2018. FINDINGS: There is diffuse ill-defined airspace disease which is new compared to previous examination with sparing of the right upper lobe. Most likely infection or edema. No pneumothorax or pleural eff usion. Cardiomediastinal silhouette is normal. Mediastinal surgical clips. There are bony degenerativ e changes. IMPRESSION: Bilateral left greater than right edema or infection. Reviewed, dictated and finalized at location B. RVISOR WELDING EQUIPMENT REPAIRER
--- NOTE | ~2020-11-19 | XR_ITS ---
EXAMINATION: XR chest 1V portable DATE: 11/25/2020 10:59 INDICATION: Dyspnea. TECHNIQUE: A single frontal view of the chest was obtained. COMPARISON: Chest single view 11/19/2020, chest CT 11/13/2020 FINDINGS: There is right lung volume loss from right upper lobectomy and right middle lobectomy. Ther e are airspace opacities in right lower lung zone and all left lung zones. A calcified left lung nodu le and calcified mediastinal and left hilar lymph nodes are consistent with old granulomatous disease . There is a small left pleural effusion. No pneumothorax. The heart size is normal. IMPRESSION: 1. Stable airspace opacities in right lower lung zone and all left lung zones, consistent with pneumo michele. 2. Stable small left pleural effusion. Reviewed, dictated and finalized at location B. E BUYER IMPRESSION: 1. Stable airspace opacities in right lower lung zone and all left lung zones, consistent with pneumonia. 2. Stable small left pleural effusion.
--- NOTE | ~2020-11-19 | US_ITS ---
EXAMINATION: US venous doppler [facility] DATE: 11/24/2020 08:58 INDICATION: Chest pain. TECHNIQUE: Grayscale ultrasound images without and with compression and Doppler ultrasound images of the bilateral lower extremity veins were obtained. COMPARISON: None. FINDINGS: The visualized portions of right common femoral vein, profunda (deep) femoral vein, femoral vein, pop liteal vein, peroneal veins, posterior tibial veins, and greater saphenous vein outflow are patent. The visualized portions of left common femoral vein, profunda femoral vein, femoral vein, popliteal v ein, peroneal veins, posterior tibial veins, and greater saphenous vein outflow are patent. IMPRESSION: 1. No deep venous thrombosis. Reviewed, dictated and finalized at location B. E PLANNER
--- NOTE | ~2020-11-19 | NM_ITS ---
EXAMINATION: NM pulmonary perfusion DATE: 11/20/2020 11:25 INDICATION: Dyspnea. TECHNIQUE: 5.3 mCi Tc-99m MAA was administered intravenously for perfusion images. Scintigraphic mario ges of the chest were obtained. COMPARISON: Chest single view 11/19/2020, chest CT 11/13/2020 FINDINGS: Perfusion images show large defects in right mid and lower lung zones. There are large defects in lef t lower lobe and small defects in the left upper lobe. IMPRESSION: 1. Nondiagnostic (intermediate probability for pulmonary embolism). Reviewed, dictated and finalized at location A. NDARY MARKET MANAGER
--- NOTE | ~2020-11-19 | CT_ITS ---
CORRECTED REPORT order changed [facility] 11/23/20 EXAMINATION: CTA chest PE protocol INDICATION: Shortness of breath with elevated d-dimer FINDINGS: There was attempted pulmonary CTA. Approximately 90 cc of intravenous contrast infiltrated into the patient's arm and the study was not completed. The emergency department was made aware by the genetic technologist. IMPRESSION: 1. Failed pulmonary CTA. Reviewed, dictated and finalized at location A. TRONIC TEST TECHNICIAN MTDHeidi IMPRESSION: 1. Failed pulmonary CTA.
--- NOTE | 2020-11-19 10:58 | ECG_ITS ---
Measurements Intervals [place] Rate: 76 P: 84 MS: 177 QRS: -68 QRSD: 169 T: 94 QT: 358 QTc: 405 Interpretive Statements SINUS RHYTHM LEFT AXIS DEVIATION LEFT BUNDLE BRANCH BLOCK BASELINE ARTIFACT- II, III, AVR, AVL, AVF, V1-V5 ABNORMAL ECG Electronically Signed On 11-19-2020 11:48:43 HEEL STIFFENER by Orville Hoffman D.O.
[2020-11-19 11:20] LABS: SARS-CoV-2 Ag Negative (Negative)
[2020-11-19] MEDS: methylPREDNISolone SOD SUCC 125 MG VIAL IV PUSH (11:27)
[2020-11-19 11:33] LABS: Hematocrit 35.5 % (35.0-42.0); Hemoglobin 12.1 g/dL (11.7-13.8); Mean Corpuscular HGB Conc 34.1 g/dL (32.0-36.0); Mean Corpuscular Volume 88.1 fL (78.0-102.0); Mean Platelet Volume 9.1 fl (9.2-11.8); Platelet Count Result 428 K/mm3 (150-420); Red Blood Count 4.03 M/mm3 (4.20-5.40)
[2020-11-19 11:46] LABS: HCO3 ABG 25.2 mmol/L (23-29); Oxygen Content ABG 18.2 %vol (16.0-22.0); Oxyhemoglobin 98.4 % (94-100); PO2 ABG 173.9 mmHg (75-85); Total Hemoglobin 12.9 g/dL; pH ABG 7.48 (7.35-7.45)
[2020-11-19 11:46] LABS: Alanine Aminotransferase 32 U/L (14-59); Albumin Level 2.2 g/dL (3.4-5.0); Alkaline Phosphatase 76 U/L (46-116); Anion Gap 6 mmol/L (8-16); Aspartate Amino Transferase 24 U/L (15-37); Bilirubin,Total 0.7 mg/dL (0.00-1.00); Blood Urea Nitrogen 15 mg/dL (7-18); Calcium 8.6 mg/dL (8.5-10.1); Carbon Dioxide 29 mmol/L (21-32); Chloride 94 mmol/L (98-108); Estimated Glomerular Filt Rate > 60; Glucose 164 mg/dL (70-99); Osmolality Calculated 272 mOsm/kg (285-295); Potassium 3.3 mmol/L (3.5-5.1); Sodium 129 mmol/L (136-145); Total Protein 6.1 g/dL (6.4-8.2)
[2020-11-19 11:48] LABS: Modified Allen's Test Pass; Site Drawn LEFT RADIAL
[2020-11-19 11:49] LABS: Device NASAL CANNULA
[2020-11-19 11:50] LABS: D Dimer 0.66 mg/L (0.19-0.50)
[2020-11-19 11:53] LABS: White Blood Count 23.2 K/mm3 (4.8-10.8)
[2020-11-19 11:56] LABS: Influenza Control Valid (Valid)
[2020-11-19 11:57] LABS: BNP 153 pg/mL (0-100); Band Neutrophils Percent 0 % (0-6); Lymphocytes Absolute Manual 0.46 K/mm3 (1.1-4.5); Lymphocytes Percent Manual 2 % (18-44); Monocytes Absolute Manual 0.69 K/mm3 (0.1-0.90); Monocytes Percent Manual 3 % (3-9); Neutrophils Absolute Manual 22.04 K/mm3 (1.7-7.2); Neutrophils Percent Manual 95 % (46-73); Total Cells Counted 100
--- NOTE | 2020-11-19 12:00 | PC.NURSE ---
NASAL CANULA 6 L AND NRB MASK [address] AT DIRECTION OF RT - PT IS TITRATED DOWN ACCORDING TO ABG BUT UNABLE TO KEEP SATURATION ABOVE 85%
[2020-11-19] MEDS: SODIUM CHLORIDE 0.9% IV 1,000 ML 100 ML IV CONT ×3 (12:15→19:05)
--- NOTE | 2020-11-19 12:42 | ED.SOB ---
HPI - SOB/Dyspnea General Chief Complaint: Shortness of Breath/Dyspnea Stated Complaint: Ambulance Source: patient Mode of arrival: EMS Limitations: no limitations History of Present Illness HPI Narrative: This is a 75-year-old female that recently discharged from hospital on November 17, 2020 was admitted with some with some shortness of breath diagnosed with pneumonia. The patient sent back to [facility] and while there had developed shortness of breath was hypoxic via EMS with some O2 saturations in the upper 60s on room air. The patient placed on oxygen and O2 sats bumped up to 89 90% on 5L of oxygen. The patient denies any chest pain there is no calf nausea or vomiting no abdominal pain. The patient does have a history of COPD /pneumonia and had chest x-ray and CTA performed on previous admission which did show that she had ground-glass opacities. Patient also has a history of lung cancer with partial right lobe resection back in 2002 and has been clear of lung cancer subsequently. Patient had an echo on with an ejection fraction of 50 to 55% with a grade 1 diastolic dysfunction. Patient upon discharge on November 17, 2020 [place] [id number], parent leave the patient was adamant on going home. MD elicited complaint: shortness of breath Pertinent past history: COPD, congestive heart failure and pneumonia Onset (ago): hour(s) Context: recent illness Timing: constant Severity: moderate Exacerbating factors: exertion Known history of: COPD and congestive heart failure Related Data Home Medications Medication Instructions Recorded Confirmed pentoxifylline 400 mg 400 mg PO TID 10/07/19 11/19/20 tablet,extended release aspirin 325 mg tablet,delayed 325 mg PO DAILY 10/18/19 11/19/20 release meclizine 25 mg tablet 25 mg PO DAILY tablet 10/18/19 11/19/20 amiodarone 200 mg PO DAILY 11/13/20 11/19/20 pravastatin 40 mg PO DAILY 11/13/20 11/19/20 Allergies Allergy/AdvReac Type Severity Reaction Status Date / Time ciprofloxacin Allergy Severe Rash Verified 07/27/20 14:35 amoxicillin Allergy Unknown Rash Verified 07/27/20 14:35 sulfanilamide Allergy Unknown Rash Verified 07/27/20 14:35 Review of Systems Review of Systems: All systems reviewed & are unremarkable except as noted in HPI and below PMFSH Past Medical History Medical History Abnormal gait Cervical spondylosis Confusion Decreased renal function Eczema Falls frequently Head injury due to trauma Knee pain, left Family History Family History Mother Hypertension Carcinoma of colon Family history of diabetes mellitus in first degree relative Family history of coronary artery disease Diabetes mellitus, Onset Age: 74 Father Diabetes mellitus, Onset Age: 57 Sibling Diabetes mellitus Family history of malignant neoplasm, Onset Age: 75 Other Family history of malignant neoplasm of breast in first degree relative Social History Social History Smoking packs per day: 2 Smoking cigarettes per day: 40.0 Years smoked: 56 Smoking pack-years: 112.00 Smoking status: Former smoker Tobacco type: cigarettes Smoking end date: 11/06/08 Alcohol intake: never Substance use: never Gender identity (if verbalized by the patient): Female Spiritual care concerns: No Exam Const: General: no acute distress and alert Orientation/consciousness: patient oriented x3 HENMT: Head: normal to inspection Eyes: Pupils: Equal, round and reactive pupils present Neck: Neck: normal visual inspection, no lymphadenopathy and no meningeal signs Chest: Chest palpation & inspection: normal inspection of the chest Resp: Effort & Inspection: normal respiratory effort Auscultation: diminished lung sounds Cardio: Rate: regular rat
[2020-11-19 12:48] LABS: Troponin I 12.2 ng/L (0.00-60.4)
[2020-11-19 13:11] LABS: Lactic Acid Reflex 2.4 mmol/L (0.4-2.0)
--- NOTE | 2020-11-19 14:05 | PM.IMHP ---
H&P: HPI History of Present Illness Date/Time: 11/19/20 14:05 Chief Complaint: hypoxia, sob Narrative: Lauryn Romeo is a 75 year old female who was recently discharged on 11/17/2020 diagnosed with pneumonia and urinary tract infection. Patient has a past medical history of abnormal gait cervical spondylosis, confusion, decreased renal function, emphysema, frequent falls, head injury due to trauma, left knee pain and lung CA status post lobectomy. Patient was discharged back to her assisted living with cefdinir 300 mg x 10 days. According to patient the day after being discharge she had no issues yesterday she started to experience increased shortness of breath fatigue and was unable to get off the couch. She requested that the staff get a saturation level her according to patient her sats were in the 50s this is when she proceeded to our ED. Patient continues to have shortness of breath with fatigue. Patient is being admitted for hypoxia secondary to pneumonia she will remain here and receive IV antibiotic treatment supplementary oxygen and nebulizer treatment Review of Systems Review of Systems: All systems reviewed & are unremarkable except as noted in HPI and below (10 point system review) [facility] Past Medical History Medical History Abnormal gait Cervical spondylosis Confusion Decreased renal function Eczema Falls frequently Head injury due to trauma Knee pain, left Family History Family History Mother Hypertension Carcinoma of colon Family history of diabetes mellitus in first degree relative Family history of coronary artery disease Diabetes mellitus, Onset Age: 74 Father Diabetes mellitus, Onset Age: 57 Sibling Diabetes mellitus Family history of malignant neoplasm, Onset Age: 75 Other Family history of malignant neoplasm of breast in first degree relative Social History Social History Smoking packs per day: 2 Smoking cigarettes per day: 40.0 Years smoked: 56 Smoking pack-years: 112.00 Smoking status: Former smoker Tobacco type: cigarettes Smoking end date: 11/06/08 Alcohol intake: never Substance use: never Gender identity (if verbalized by the patient): Female Spiritual care concerns: No Meds Home Medications and Allergies Home Medications Medication Instructions Recorded Confirmed Type pentoxifylline 400 mg 400 mg PO TID 10/07/19 11/19/20 History tablet,extended release aspirin 325 mg tablet,delayed 325 mg PO DAILY 10/18/19 11/19/20 History release meclizine 25 mg tablet 25 mg PO DAILY tablet 10/18/19 11/19/20 History hydrochlorothiazide 50 mg tablet 50 mg PO DAILY #90 tablet 07/20/20 11/19/20 Rx triamcinolone acetonide 0.5 % 1 applic TOPICAL BID #80 gm 07/27/20 11/19/20 Rx topical cream ramipril 10 mg capsule 10 mg PO DAILY #90 cap 10/18/20 11/19/20 Rx fluoxetine 20 mg tablet 40 mg PO DAILY #180 tablet 10/26/20 11/19/20 Rx amiodarone 200 mg PO DAILY 11/13/20 11/19/20 History pravastatin 40 mg PO DAILY 11/13/20 11/19/20 History dextroamphetamine-amphetamine ER 20 mg PO QAM #30 cap 11/16/20 11/19/20 Rx 20 mg 24hr capsule,extend release acetaminophen [Tylenol Extra 500 mg PO Q6H PRN #2 tablet 11/17/20 11/19/20 Rx Strength] cefdinir 300 mg PO Q12H 10 Days #20 cap 11/17/20 11/19/20 Rx sodium chloride 1 g PO QAM #4 tablet 11/17/20 11/19/20 Rx Allergies Allergy/AdvReac Type Severity Reaction Status Date / Time ciprofloxacin Allergy Severe Rash Verified 07/27/20 14:35 amoxicillin Allergy Unknown Rash Verified 07/27/20 14:35 sulfanilamide Allergy Unknown Rash Verified 07/27/20 14:35 Vital Signs Vital Signs - 24 hr 11/19/20 11:00 11/19/20 11:05 11/19/20 12:50 Temperature 97.6 F Pulse Rate 74 75 Respiratory Rate 16 Blood Pressure 148/89 H
[2020-11-19 14:29] LABS: Reflex Lactic Acid Yes or No Add Lactic
[2020-11-19] MEDS: POTASSIUM CHLORIDE 20 MEQ TABLET 40 MEQ PO (15:00)
[2020-11-19 15:15] LABS: Lactic Acid 1.2 mmol/L (0.4-2.0)
[2020-11-19] MEDS: ENOXAPARIN 40 MG/0.4 ML SYRINGE SUB-Q (16:37)
[2020-11-19] MEDS: PENTOXIFYLLINE 400 MG TABCR PO (16:38)
--- NOTE | 2020-11-19 17:42 | ADMGEN ---
2291 This patient, Lauryn Romeo, was admitted to 2nd Floor Room 205-2. Patient/family oriented to hospital policies and general routines including ID bracelet, bed and alarms, visiting hours, pain management, procedures, bathroom and other care routines, personal items, smoking policy, room service/diet, and visiting hours. Information on how to activate the Rapid Response Team has been discussed. Patient/Family are encouraged to report perceived risks to care and to ask questions if they do not understand what they are told or what they should do. She is A&O. Denies any pain but does feel week and sob on exertion. lungs are diminished. nrb 10L and nc 5L are in place. keeps spo2 in high 90's. samuel ferrer
[2020-11-19] MEDS: methylPREDNISolone SOD SUCC 40 MG VIAL IV PUSH ×2 (17:54→23:40)
[2020-11-19] MEDS: IPRATROPIUM 0.5 MG/ALBUTEROL SULFATE 2.5 MG AMPUL.NEB 3 ML INHALATION ×2 (19:05→23:40)
[2020-11-19] MEDS: DOXYCYCLINE IV 100 MG in DEXTROSE 5% 100 ML IVPB (20:32)
--- NOTE | 2020-11-19 22:21 | PC.NURSE ---
pt assisted to bed from chair, sba for transfer, pillows applied for comfort, belongings within reach, denies any other needs at this time
[2020-11-20] VITALS (9 sets, daily range): BP systolic 123–158; BP diastolic 47–76; PULSE 77–88; RESP 18–24; TEMP 36.6–37.2; O2SAT 83–99
--- NOTE | 2020-11-20 00:05 | PC.NURSE ---
Notified by radiology of order for NM perfusion test-asking if nuclear medicine had been contacted. Unable to find if notified.
--- NOTE | 2020-11-20 02:13 | PC.NURSE ---
pt sleeping, no evidence of distress at this time, belongings within reach
--- NOTE | 2020-11-20 05:16 | PC.NURSE ---
pt vitals obtained and pt oxygen saturation was between 86-88% on 5L NC, repositioned pt and coached in deep breathing, sats remained unchanged. at 0510 NRB at 10L added to NC, pt sats increased to 94-96%, consulting solution manager notified and will notify respiratory
[2020-11-20] MEDS: methylPREDNISolone SOD SUCC 40 MG VIAL IV PUSH ×4 (05:24→23:57)
[2020-11-20] MEDS: SODIUM CHLORIDE 0.9% IV 1,000 ML 100 ML IV CONT (05:27)
[2020-11-20] MEDS: IPRATROPIUM 0.5 MG/ALBUTEROL SULFATE 2.5 MG AMPUL.NEB 3 ML INHALATION (05:36)
[2020-11-20 05:57] LABS: Hematocrit 34.7 % (35.0-42.0); Hemoglobin 11.7 g/dL (11.7-13.8); Mean Corpuscular HGB Conc 33.7 g/dL (32.0-36.0); Mean Corpuscular Hemoglobin 29.5 pg (27.0-31.0); Mean Corpuscular Volume 87.4 fL (78.0-102.0); Mean Platelet Volume 9.4 fl (9.2-11.8); Platelet Count Result 421 K/mm3 (150-420); Red Blood Count 3.97 M/mm3 (4.20-5.40); Red Cell Distribution Width 13.2 % (11.6-14.4)
[2020-11-20 06:10] LABS: Alanine Aminotransferase 35 U/L (14-59); Albumin Level 2.2 g/dL (3.4-5.0); Alkaline Phosphatase 76 U/L (46-116); Anion Gap 9 mmol/L (8-16); Aspartate Amino Transferase 48 U/L (15-37); Bilirubin,Total 0.5 mg/dL (0.00-1.00); Blood Urea Nitrogen 13 mg/dL (7-18); Calcium 7.9 mg/dL (8.5-10.1); Carbon Dioxide 24 mmol/L (21-32); Chloride 98 mmol/L (98-108); Estimated CRCL calculation 69 ml/min; Estimated Glomerular Filt Rate > 60; Glucose 148 mg/dL (70-99); Osmolality Calculated 275 mOsm/kg (285-295); Potassium 3.7 mmol/L (3.5-5.1); Sodium 131 mmol/L (136-145); Total Protein 5.4 g/dL (6.4-8.2)
[2020-11-20 06:22] LABS: White Blood Count 28.5 K/mm3 (4.8-10.8)
[2020-11-20 06:23] LABS: Band Neutrophils Percent 0 % (0-6); Lymphocytes Absolute Manual 1.14 K/mm3 (1.1-4.5); Lymphocytes Percent Manual 4 % (18-44); Monocytes Absolute Manual 1.14 K/mm3 (0.1-0.90); Monocytes Percent Manual 4 % (3-9); Myelocytes Percent 1 %; Neutrophils Absolute Manual 25.93 K/mm3 (1.7-7.2); Neutrophils Percent Manual 91 % (46-73); Total Cells Counted 100
--- NOTE | 2020-11-20 06:28 | PC.NURSE ---
Lab reported critical WBC. notified of results
[2020-11-20] MEDS: hydroCHLOROthiazide 25 MG TABLET 50 MG PO (09:23)
[2020-11-20] MEDS: ramipriL 5 MG CAPSULE 10 MG PO (09:23)
[2020-11-20] MEDS: FLUoxetine HCL 10 MG CAPSULE 40 MG PO (09:24)
[2020-11-20] MEDS: AMIODARONE HCL 200 MG TABLET PO (09:25)
[2020-11-20] MEDS: POTASSIUM CHLORIDE 20 MEQ TABLET 40 MEQ PO (09:25)
[2020-11-20] MEDS: ASPIRIN 325 MG ENTERIC TABLET PO (09:25)
[2020-11-20] MEDS: MECLIZINE HCL 25 MG TABLET PO (09:26)
[2020-11-20] MEDS: PRAVASTATIN SODIUM 20 MG TABLET 40 MG PO (09:26)
[2020-11-20] MEDS: DOXYCYCLINE IV 100 MG in DEXTROSE 5% 100 ML IVPB ×2 (09:27→21:05)
--- NOTE | 2020-11-20 09:45 | PHAR ---
11/20/20 - verified pt.'s home med Adderall XR 20mg cap. tls
[2020-11-20 09:46] LABS: BNP 190 pg/mL (0-100)
[2020-11-20] MEDS: PENTOXIFYLLINE 400 MG TABCR PO ×3 (10:00→16:51)
--- NOTE | 2020-11-20 12:13 | PC.NURSE ---
REFUSING LUNCH TRAY, STATES THINGS ARE HAPPENING AND NO ONE IS EXPLAINING ANYTHING TO HER, STATES JUST ABOUT READY TO WALK OUT OF HERE, EXPLAINED WHY NUCLEAR MED TEST WAS BEING DONE TO RULE OUT A PE, ALSO EXPLAINED NEED FOR REPEAT COVID TEST AND NEED FOR ISOLATION TO BE RE ESTABLISHED, VERY ANGRY, NOT LIKING ANY OF THE FOOD, STATES JUST WENT THROUGH THIS LAST WEEK, APOLOGIZED FOR ANY MISCOMMUNICATION AND TRIED TO CALM PATIENT BY EXPLAINING WHAT WAS CURRENTLY TAKING PLACE
[2020-11-20] MEDS: LORazepam INJ (*CRX) 2 MG/ML VIAL 0.5 MG IV PUSH (12:39)
--- NOTE | 2020-11-20 12:41 | P.PN_ITS ---
Progress Note: A&P Assessment and Plan (1) Pneumonia: Qualifiers: Laterality: unspecified laterality Lung location: unspecified part of lung Pneumonia type: due to unspecified organism Qualified Code(s): J18.9 - Pneumonia, unspecified organism <OLEKSANDR Vicente - Last Filed: 11/20/20 12:49> Code(s): J18.9 - Pneumonia, unspecified organism <OLEKSANDR Vicente - Last Filed: 11/20/20 12:49> Status: Acute <OLEKSANDR Vicente - Last Filed: 11/20/20 12:49> Assessment and Plan: * Failed p.o. therapy * Chest x-ray indicatesBilateral left greater than right edema or infection. * Continue Rocephin and doxy and Solu-Medrol * Continue nebulizers and inhalers * Continue supplementary oxygen as needed * Continue to monitor oxygen * ABG indicates * WBCs 23.2 on admission today 28.5 could possibly be elevated due to steroid use * Lactic acid slightly elevated * We will recheck labs in the a.m. <OLEKSANDR Vicente - Last Filed: 11/20/20 12:49> (2) Hypoxemia: Code(s): R09.02 - Hypoxemia <Kathya Castillo OLEKSANDR - Last Filed: 11/20/20 12:49> Status: Acute <Kathya Castillo OLEKSANDR - Last Filed: 11/20/20 12:49> Assessment and Plan: * Possibly secondary to pneumonia * Refer to pneumonia <Kathya Castillo OLEKSANDR - Last Filed: 11/20/20 12:49> (3) Elevated d-dimer: Code(s): R79.89 - Other specified abnormal findings of blood chemistry <Kathya Castillo OLEKSANDR - Last Filed: 11/20/20 12:49> Status: Acute <Kathya Castillo OLEKSANDR - Last Filed: 11/20/20 12:49> Assessment and Plan: * VQ scan indicates intermediate probability of pulmonary embolism * Will start the patient on weight-based Lovenox <Kathya Castillo OLEKSANDR - Last Filed: 11/20/20 12:49> (4) Electrolyte imbalance: Code(s): E87.8 - Other disorders of electrolyte and fluid balance, not elsewhere classified <Kathya Castillo MARKETING TRAFFIC MANAGERInesSandra - Last Filed: 11/20/20 12:49> Status: Acute <Kathya Castillo OLEKSANDR - Last Filed: 11/20/20 12:49> Assessment and Plan: * Sodium 129 on admission has improved today 131 improving * Potassium 3.3 on admission currently within normal limits resolved * Continue IV fluid in replaced with supplements <Kathya Castillo OLEKSANDR - Last Filed: 11/20/20 12:49> (5) Mixed hyperlipidemia: Code(s): E78.2 - Mixed hyperlipidemia <Kathya Castillo REBECCASandra - Last Filed: 11/20/20 12:49> Status: Acute <Kathya Castillo REBECCASandra - Last Filed: 11/20/20 12:49> Assessment and Plan: * Continue statin <Kathya Castillo REBECCASandra - Last Filed: 11/20/20 12:49> (6) Anxiety disorder, unspecified: Code(s): F41.9 - Anxiety disorder, unspecified <Kathya Castillo REBECCASandra - Last Filed: 11/20/20 12:49> Status: Acute <Kathya Castillo OLEKSANDR - Last Filed: 11/20/20 12:49> Assessment and Plan: * Continue Prozac * Started patient on as needed Ativan <Kathya CastilloMICHELLEInesSandra - Last Filed: 11/20/20 12:49> Review of Systems Review of Systems: All systems reviewed & are unremarkable except as noted in HPI and below (10 point system review) <Kathya Castillo MARKETING TRAFFIC MANAGERInesSandra - Last Filed: 11/20/20 12:49> Exam Narrative: Exam Narrative: Exam Narrative: GENERAL: Elderly fatigued female HEAD: normocephalic, atraumatic. EYES: PERRL. Sclera clear/white. Vision is grossly intact. EARS: External ears normal, auditory canals clear and without drainage, TMs normal without perforation. Hearing grossly intact
--- NOTE | 2020-11-20 12:41 | PC.NURSE ---
PCR COVID TEST ORDERED, PATIENT CHANGED FROM 205 TO 211 AND ISOLATION STATUS CHANGED FOR PATIENT UNDER INVESTIGATION FOR COVID, RAPID TEST NEGATIVE YESTERDAY, EXPLAINED TO PATIENT THAT SINCE SHE HAS BEEN DISCHARGED PRIOR TO THIS RE ADMIT IMPORTANT TO RULE OUT COVID A DIAGNOSIS DUE TO HER CURRENT PNEUMONIA
--- NOTE | 2020-11-20 12:41 | WPDPN ---
Progress Note: A&P Assessment and Plan (1) Pneumonia: Qualifiers: Laterality: unspecified laterality Lung location: unspecified part of lung Pneumonia type: due to unspecified organism Qualified Code(s): J18.9 - Pneumonia, unspecified organism <OLEKSANDR Vicente - Last Filed: 11/20/20 12:49> Code(s): J18.9 - Pneumonia, unspecified organism <OLEKSANDR Vicente - Last Filed: 11/20/20 12:49> Status: Acute <OLEKSANDR Vicente - Last Filed: 11/20/20 12:49> Assessment and Plan: Failed p.o. therapy Chest x-ray indicatesBilateral left greater than right edema or infection. Continue Rocephin and doxy and Solu-Medrol Continue nebulizers and inhalers Continue supplementary oxygen as needed Continue to monitor oxygen ABG indicates WBCs 23.2 on admission today 28.5 could possibly be elevated due to steroid use Lactic acid slightly elevated We will recheck labs in the a.m. <Kathya Castillo OLEKSANDR - Last Filed: 11/20/20 12:49> (2) Hypoxemia: Code(s): R09.02 - Hypoxemia <Kathya Castillo OLEKSANDR - Last Filed: 11/20/20 12:49> Status: Acute <Kathya Castillo OLEKSANDR - Last Filed: 11/20/20 12:49> Assessment and Plan: Possibly secondary to pneumonia Refer to pneumonia <Kathya Castillo OLEKSANDR - Last Filed: 11/20/20 12:49> (3) Elevated d-dimer: Code(s): R79.89 - Other specified abnormal findings of blood chemistry <Kathya Castillo REBECCAC - Last Filed: 11/20/20 12:49> Status: Acute <Kathya Castillo OLEKSANDR - Last Filed: 11/20/20 12:49> Assessment and Plan: VQ scan indicates intermediate probability of pulmonary embolism Will start the patient on weight-based Lovenox <Kathya Castillo OLEKSANDR - Last Filed: 11/20/20 12:49> (4) Electrolyte imbalance: Code(s): E87.8 - Other disorders of electrolyte and fluid balance, not elsewhere classified <OLEKSANDR Vicente - Last Filed: 11/20/20 12:49> Status: Acute <OLEKSANDR Vicente - Last Filed: 11/20/20 12:49> Assessment and Plan: Sodium 129 on admission has improved today 131 improving Potassium 3.3 on admission currently within normal limits resolved Continue IV fluid in replaced with supplements <Kathya Castillo OLEKSANDR - Last Filed: 11/20/20 12:49> (5) Mixed hyperlipidemia: Code(s): E78.2 - Mixed hyperlipidemia <Kathya Castillo REBECCASandra - Last Filed: 11/20/20 12:49> Status: Acute <Kathya Castillo OLEKSANDR - Last Filed: 11/20/20 12:49> Assessment and Plan: Continue statin <Kathya Castillo OLEKSANDR - Last Filed: 11/20/20 12:49> (6) Anxiety disorder, unspecified: Code(s): F41.9 - Anxiety disorder, unspecified <Kathya Castillo OLEKSANDR - Last Filed: 11/20/20 12:49> Status: Acute <OLEKSANDR Vicente - Last Filed: 11/20/20 12:49> Assessment and Plan: Continue Prozac Started patient on as needed Ativan <Kathya Castillo OLEKSANDR - Last Filed: 11/20/20 12:49> Review of Systems Review of Systems: All systems reviewed & are unremarkable except as noted in HPI and below (10 point system review) <Kathya Castillo OLEKSANDR - Last Filed: 11/20/20 12:49> Exam Narrative: Exam Narrative: Exam Narrative: GENERAL: Elderly fatigued female HEAD: normocephalic, atraumatic. EYES: PERRL. Sclera clear/white. Vision is grossly intact. EARS: External ears normal, auditory canals clear and without drainage, TMs normal without perforation. Hearing grossly intact. NOSE: External nose normal with no obvious nasal discharge, nares without redness, no rhinorrhea. THROAT: Mucous membranes moist, posterior pharynx clear. NECK: Neck supple, non-tender without lymphadenopathy, masses or thyromegaly. CARDIOVASCULAR: Regular rate and rhythm without murmurs, gallops, or rubs. RESPIRATORY: Diminished breath sounds absent breath sounds right upper lob
--- NOTE | 2020-11-20 15:47 | PC.NURSE ---
1235 pt tearful and refuses lunch. upset due to fact that we are testing for covid. prn meds given
[2020-11-20] MEDS: ENOXAPARIN 100 MG/ML SYRINGE 85 MG SUB-Q (16:51)
--- NOTE | 2020-11-20 16:52 | PC.NURSE ---
pt states she has been up to bathroom by herself, nc is not on properly, readjusted nc and turned up to 6L, pt asks about turning off the loud air vent , informed that it can't be turned off in individual rooms, sitting up in chair, call light in reach
--- NOTE | 2020-11-20 18:45 | PC.NURSE ---
pt given fresh ice water and materials for brushing teeth, commode taken in, pt finished with dinner tray, sitting in recliner with feet up, phone plugged in, call light on lap
[2020-11-20] MEDS: traZODone HCL 50 MG TABLET PO (21:04)
[2020-11-20] MEDS: BUDESONIDE/FORMOTEROL (*SP) 160-4.5 MCG 6 GM INH 2 PUFF INHALATION (21:04)
[2020-11-21] VITALS (7 sets, daily range): BP systolic 112–167; BP diastolic 54–79; PULSE 71–88; RESP 19–20; TEMP 36.1–37; O2SAT 85–90
[2020-11-21] MEDS: ENOXAPARIN 100 MG/ML SYRINGE 85 MG SUB-Q ×2 (01:55→13:09)
--- NOTE | 2020-11-21 02:00 | PC.NURSE ---
Patient sleeping, gently awoken for medication administration and recheck of pulse ox. Patient back to sleep with call light and needed items within reach.
[2020-11-21 05:50] LABS: Hematocrit 33.9 % (35.0-42.0); Hemoglobin 11.4 g/dL (11.7-13.8); Mean Corpuscular HGB Conc 33.6 g/dL (32.0-36.0); Mean Corpuscular Hemoglobin 30.2 pg (27.0-31.0); Mean Corpuscular Volume 89.7 fL (78.0-102.0); Mean Platelet Volume 9.2 fl (9.2-11.8); Platelet Count Result 411 K/mm3 (150-420); Red Blood Count 3.78 M/mm3 (4.20-5.40); Red Cell Distribution Width 13.9 % (11.6-14.4)
--- NOTE | 2020-11-21 05:55 | PC.NURSE ---
Lab called to report a critical WBC of 34.9.
[2020-11-21 05:56] LABS: White Blood Count 34.9 K/mm3 (4.8-10.8)
[2020-11-21 06:13] LABS: Alanine Aminotransferase 51 U/L (14-59); Albumin Level 2.2 g/dL (3.4-5.0); Alkaline Phosphatase 81 U/L (46-116); Anion Gap 6 mmol/L (8-16); Aspartate Amino Transferase 70 U/L (15-37); Bilirubin,Total 0.5 mg/dL (0.00-1.00); Blood Urea Nitrogen 16 mg/dL (7-18); Calcium 8.9 mg/dL (8.5-10.1); Carbon Dioxide 26 mmol/L (21-32); Chloride 100 mmol/L (98-108); Estimated CRCL calculation 65 ml/min; Estimated Glomerular Filt Rate > 60; Glucose 135 mg/dL (70-99); Osmolality Calculated 277 mOsm/kg (285-295); Potassium 4.3 mmol/L (3.5-5.1); Sodium 132 mmol/L (136-145); Total Protein 5.3 g/dL (6.4-8.2)
[2020-11-21] MEDS: methylPREDNISolone SOD SUCC 40 MG VIAL IV PUSH ×2 (06:14→09:12)
--- NOTE | 2020-11-21 06:15 | PC.NURSE ---
Dr. Del Real notified of pt's critical WBC; No new orders at this time.
[2020-11-21] MEDS: POTASSIUM CHLORIDE 20 MEQ TABLET 40 MEQ PO (07:33)
[2020-11-21] MEDS: DOXYCYCLINE IV 100 MG in DEXTROSE 5% 100 ML IVPB ×2 (09:06→21:40)
[2020-11-21] MEDS: hydroCHLOROthiazide 25 MG TABLET 50 MG PO (09:07)
[2020-11-21] MEDS: FLUoxetine HCL 10 MG CAPSULE 40 MG PO (09:07)
[2020-11-21] MEDS: ASPIRIN 325 MG ENTERIC TABLET PO (09:07)
[2020-11-21] MEDS: PRAVASTATIN SODIUM 20 MG TABLET 40 MG PO (09:07)
--- NOTE | 2020-11-21 09:07 | WPDPN ---
Progress Note: A&P Assessment and Plan (1) Pneumonia: Qualifiers: Laterality: unspecified laterality Lung location: unspecified part of lung Pneumonia type: due to unspecified organism Qualified Code(s): J18.9 - Pneumonia, unspecified organism Code(s): J18.9 - Pneumonia, unspecified organism Status: Acute Assessment and Plan: Failed p.o. therapy Chest x-ray indicatesBilateral left greater than right edema or infection. Continue Rocephin and doxy and Solu-Medrol Continue nebulizers and inhalers Continue supplementary oxygen as needed Continue to monitor oxygen ABG indicates WBCs34.9on admission today 28.5 could possibly be elevated due to steroid use Lactic acid slightly elevated We will recheck labs in the a.m. (2) Hypoxemia: Code(s): R09.02 - Hypoxemia Status: Acute Assessment and Plan: Possibly secondary to pneumonia Refer to pneumonia Patient denies any shortness of breath (3) Elevated d-dimer: Code(s): R79.89 - Other specified abnormal findings of blood chemistry Status: Acute Assessment and Plan: VQ scan indicates intermediate probability of pulmonary embolism Continue weight-based Lovenox (4) Electrolyte imbalance: Code(s): E87.8 - Other disorders of electrolyte and fluid balance, not elsewhere classified Status: Acute Assessment and Plan: Sodium 129 on admission has improved today 132 improving Potassium 3.3 on admission currently within normal limits resolved Continue IV fluid in replaced with supplements (5) Mixed hyperlipidemia: Code(s): E78.2 - Mixed hyperlipidemia Status: Acute Assessment and Plan: Continue statin (6) Anxiety disorder, unspecified: Code(s): F41.9 - Anxiety disorder, unspecified Status: Acute Assessment and Plan: Continue Prozac Started patient on as needed Ativan Review of Systems Review of Systems: All systems reviewed & are unremarkable except as noted in HPI and below (10 point system review) Exam Narrative: Exam Narrative: Exam Narrative: GENERAL: Elderly fatigued female HEAD: normocephalic, atraumatic. EYES: PERRL. Sclera clear/white. Vision is grossly intact. EARS: External ears normal, auditory canals clear and without drainage, TMs normal without perforation. Hearing grossly intact. NOSE: External nose normal with no obvious nasal discharge, nares without redness, no rhinorrhea. THROAT: Mucous membranes moist, posterior pharynx clear. NECK: Neck supple, non-tender without lymphadenopathy, masses or thyromegaly. CARDIOVASCULAR: Regular rate and rhythm without murmurs, gallops, or rubs. RESPIRATORY: Diminished breath sounds absent breath sounds right upper lobe GASTROINTESTINAL: Abdomen soft, non-tender, nondistended. Bowel sounds are active. No hepato-splenomegaly, or palpable masses. No guarding. SKIN: warm, intact with no suspicious lesions or rash, good texture and turgor. NEURO: awake, alert, and oriented to person, place and time. There were no obvious focal neurologic abnormalities. Steady gait EXTREMITIES: Normal range of motion. No edema. No calf tenderness. Negative Homans sign bilaterally. BACK: Nontender without deformity or crepitance. No flank tenderness. Objective Data Vital Signs Vital Signs: Vital Signs - 24 hr 11/20/20 09:25 11/20/20 12:00 11/20/20 16:00 Temperature 99 F 98.7 F Pulse Rate 78 80 88 Respiratory Rate 20 24 H Blood Pressure 148/74 H 136/47 L Pulse Oximetry 91 83 L 11/20/20 18:47 11/20/20 20:00 11/21/20 00:00 Temperature 97.8 F 96.9 F L Pulse Rate 78 79 Respiratory Rate 20 Blood Pressure 123/64 112/55 L Pulse Oximetry 90 90 88 L 11/21/20 01:55 11/21/20 04:00 Temperature 97.0 F L Pulse Rate 71 Respiratory Rate 20 Blood Pressure 147/67 H Pulse Oximetry 90 90 Intake/Output Intake/Output: Intake & Output 11/18/20 11/19/20 11/20/20 11/21/20 23:59 23:59 23:59 23:5
[2020-11-21] MEDS: MECLIZINE HCL 25 MG TABLET PO (09:08)
[2020-11-21] MEDS: BUDESONIDE/FORMOTEROL (*SP) 160-4.5 MCG 6 GM INH 2 PUFF INHALATION ×2 (09:08→21:41)
[2020-11-21] MEDS: AMIODARONE HCL 200 MG TABLET PO (09:08)
[2020-11-21] MEDS: PENTOXIFYLLINE 400 MG TABCR PO ×3 (09:08→16:58)
[2020-11-21] MEDS: ramipriL 5 MG CAPSULE 10 MG PO (09:09)
--- NOTE | 2020-11-21 18:38 | PC.NURSE ---
p sitting up in bedside chair. no distress noted. able to take self to chair and bathroom . instructions to ring cosby for assist.
[2020-11-21 18:46] LABS: SARS-CoV-2 RNA PCR Negative
--- NOTE | 2020-11-21 19:18 | PC.NURSE ---
report josh kumar rn
[2020-11-21] MEDS: traZODone HCL 50 MG TABLET PO (21:39)
[2020-11-22] VITALS: BP 126/58; PULSE 86; RESP 20; TEMP 36.8; O2SAT 94
--- NOTE | 2020-11-22 02:00 | PC.NURSE ---
Patient's SpO2 level=85% on O2 @ 6 lpm/nc. Patient denies SOB. After several minutes of pursed lip breathing SpO2 decreased to 82%. Changed patient to non-rebreather mask @ 10 lpm. After several minutes SpO2 only increased to 88%. Increased O2 to 12 lpm per non-rebreather mask. After a couple minutes SpO2 increased to 92%. Patient denied SOB throughout the whole time.
[2020-11-22] MEDS: ENOXAPARIN 100 MG/ML SYRINGE 85 MG SUB-Q ×2 (02:08→13:00)
--- NOTE | 2020-11-22 03:30 | PC.NURSE ---
Patient remains on O2 @ 12% per non-rebreather mask and SpO2 is 97%.
--- NOTE | 2020-11-22 05:09 | PC.NURSE ---
Patient still on O2 @ 12 lpm on non-rebreather mask and SpO2 is 96%.
[2020-11-22 05:54] LABS: Hematocrit 35.2 % (35.0-42.0); Hemoglobin 11.5 g/dL (11.7-13.8); Mean Corpuscular HGB Conc 32.7 g/dL (32.0-36.0); Mean Corpuscular Volume 88.7 fL (78.0-102.0); Mean Platelet Volume 9.4 fl (9.2-11.8); Platelet Count Result 467 K/mm3 (150-420); Red Blood Count 3.97 M/mm3 (4.20-5.40); Red Cell Distribution Width 13.7 % (11.6-14.4)
[2020-11-22 06:03] LABS: White Blood Count 27.6 K/mm3 (4.8-10.8)
[2020-11-22 06:15] LABS: Alanine Aminotransferase 51 U/L (14-59); Albumin Level 2.2 g/dL (3.4-5.0); Alkaline Phosphatase 81 U/L (46-116); Anion Gap 4 mmol/L (8-16); Aspartate Amino Transferase 51 U/L (15-37); Bilirubin,Total 0.4 mg/dL (0.00-1.00); Blood Urea Nitrogen 18 mg/dL (7-18); Calcium 8.7 mg/dL (8.5-10.1); Carbon Dioxide 27 mmol/L (21-32); Chloride 101 mmol/L (98-108); Estimated CRCL calculation 60 ml/min; Estimated Glomerular Filt Rate > 60; Glucose 111 mg/dL (70-99); Osmolality Calculated 276 mOsm/kg (285-295); Potassium 4.4 mmol/L (3.5-5.1); Sodium 132 mmol/L (136-145); Total Protein 5.2 g/dL (6.4-8.2)
--- NOTE | 2020-11-22 06:31 | PC.NURSE ---
Lab called to report critical WBC value of 27.6. Dr. Stroud notified of WBC results and no new orders at this time.
[2020-11-22 08:00] VITALS: BP 121/103; PULSE 83; RESP 19; TEMP 36.6; O2SAT 85
[2020-11-22] MEDS: PENTOXIFYLLINE 400 MG TABCR PO ×3 (09:02→16:51)
[2020-11-22] MEDS: POTASSIUM CHLORIDE 20 MEQ TABLET 40 MEQ PO (09:02)
[2020-11-22] MEDS: ASPIRIN 325 MG ENTERIC TABLET PO (09:02)
[2020-11-22] MEDS: FLUoxetine HCL 10 MG CAPSULE 40 MG PO (09:02)
[2020-11-22] MEDS: hydroCHLOROthiazide 25 MG TABLET 50 MG PO (09:02)
[2020-11-22 09:03] VITALS: PULSE 83
[2020-11-22] MEDS: MECLIZINE HCL 25 MG TABLET PO (09:03)
[2020-11-22] MEDS: predniSONE 20 MG TABLET 40 MG PO (09:03)
[2020-11-22] MEDS: PRAVASTATIN SODIUM 20 MG TABLET 40 MG PO (09:03)
[2020-11-22] MEDS: AMIODARONE HCL 200 MG TABLET PO (09:03)
--- NOTE | 2020-11-22 09:03 | P.PN_ITS ---
Progress Note: A&P Assessment and Plan (1) Pneumonia: Qualifiers: Laterality: unspecified laterality Lung location: unspecified part of lung Pneumonia type: due to unspecified organism Qualified Code(s): J18.9 - Pneumonia, unspecified organism Code(s): J18.9 - Pneumonia, unspecified organism Status: Acute Assessment and Plan: * Failed p.o. therapy * Chest x-ray indicatesBilateral left greater than right edema or infection. * Continue Rocephin and doxy and prednisone * Continue nebulizers and inhalers * Continue supplementary oxygen as needed * Continue to monitor oxygen * ABG indicates * WBC 18.4>23.2>28.5>34.9>27.6. Improved discontinue Solu-Medrol possible cause for elevated WBCs * Lactic acid slightly elevated on admission currently within normal limit * We will recheck labs in the a.m. (2) Hypoxemia: Code(s): R09.02 - Hypoxemia Status: Acute Assessment and Plan: * Possibly secondary to pneumonia * Refer to pneumonia * Patient denies any shortness of breath (3) Elevated d-dimer: Code(s): R79.89 - Other specified abnormal findings of blood chemistry Status: Acute Assessment and Plan: * VQ scan indicates intermediate probability of pulmonary embolism * Continue weight-based Lovenox (4) Electrolyte imbalance: Code(s): E87.8 - Other disorders of electrolyte and fluid balance, not elsewhere classified Status: Acute Assessment and Plan: * Sodium 129 on admission [id number] >132 improving * Potassium 3.3 on admission currently within normal limits resolved * Continue IV fluid in replaced with supplements (5) Mixed hyperlipidemia: Code(s): E78.2 - Mixed hyperlipidemia Status: Acute Assessment and Plan: * Continue statin (6) Anxiety disorder, unspecified: Code(s): F41.9 - Anxiety disorder, unspecified Status: Acute Assessment and Plan: * Continue Prozac * Started patient on as needed Ativan Review of Systems Review of Systems: All systems reviewed & are unremarkable except as noted in HPI and below (10 point system review) Exam Narrative: Exam Narrative: Exam Narrative: GENERAL: Elderly fatigued female HEAD: normocephalic, atraumatic. EYES: PERRL. Sclera clear/white. Vision is grossly intact. EARS: External ears normal, auditory canals clear and without drainage, TMs normal without perforation. Hearing grossly intact. NOSE: External nose normal with no obvious nasal discharge, nares without redness, no rhinorrhea. THROAT: Mucous membranes moist, posterior pharynx clear. NECK: Neck supple, non-tender without lymphadenopathy, masses or thyromegaly. CARDIOVASCULAR: Regular rate and rhythm without murmurs, gallops, or rubs. RESPIRATORY: Diminished breath sounds absent breath sounds right upper lobe GASTROINTESTINAL: Abdomen soft, non-tender, nondistended. Bowel sounds are active. No hepato-splenomegaly, or palpable masses. No guarding. SKIN: warm, intact with no suspicious lesions or rash, good texture and turgor. NEURO: awake, alert, and oriented to person, place and time. There were no obvious focal neurologic abnormalities. Steady gait EXTREMITIES: Normal range of motion. No edema. No calf tenderness. Negative Homans sign bilaterally. BACK: Nontender without deformity or crepitance. No flank tenderness. Objective Data Vital Signs Vital Signs: Vital Signs - 24 hr 11/21/20 09:08 11/21/20 12:00 11/21/20 16:00 Temperature 98.5 F 97.2 F L Pulse Rate 88
--- NOTE | 2020-11-22 09:03 | WPDPN ---
Progress Note: A&P Assessment and Plan (1) Pneumonia: Qualifiers: Laterality: unspecified laterality Lung location: unspecified part of lung Pneumonia type: due to unspecified organism Qualified Code(s): J18.9 - Pneumonia, unspecified organism Code(s): J18.9 - Pneumonia, unspecified organism Status: Acute Assessment and Plan: Failed p.o. therapy Chest x-ray indicatesBilateral left greater than right edema or infection. Continue Rocephin and doxy and prednisone Continue nebulizers and inhalers Continue supplementary oxygen as needed Continue to monitor oxygen ABG indicates WBC 18.4>23.2>28.5>34.9>27.6. Improved discontinue Solu-Medrol possible cause for elevated WBCs Lactic acid slightly elevated on admission currently within normal limit We will recheck labs in the a.m. (2) Hypoxemia: Code(s): R09.02 - Hypoxemia Status: Acute Assessment and Plan: Possibly secondary to pneumonia Refer to pneumonia Patient denies any shortness of breath (3) Elevated d-dimer: Code(s): R79.89 - Other specified abnormal findings of blood chemistry Status: Acute Assessment and Plan: VQ scan indicates intermediate probability of pulmonary embolism Continue weight-based Lovenox (4) Electrolyte imbalance: Code(s): E87.8 - Other disorders of electrolyte and fluid balance, not elsewhere classified Status: Acute Assessment and Plan: Sodium 129 on admission [id number] >132 improving Potassium 3.3 on admission currently within normal limits resolved Continue IV fluid in replaced with supplements (5) Mixed hyperlipidemia: Code(s): E78.2 - Mixed hyperlipidemia Status: Acute Assessment and Plan: Continue statin (6) Anxiety disorder, unspecified: Code(s): F41.9 - Anxiety disorder, unspecified Status: Acute Assessment and Plan: Continue Prozac Started patient on as needed Ativan Review of Systems Review of Systems: All systems reviewed & are unremarkable except as noted in HPI and below (10 point system review) Exam Narrative: Exam Narrative: Exam Narrative: GENERAL: Elderly fatigued female HEAD: normocephalic, atraumatic. EYES: PERRL. Sclera clear/white. Vision is grossly intact. EARS: External ears normal, auditory canals clear and without drainage, TMs normal without perforation. Hearing grossly intact. NOSE: External nose normal with no obvious nasal discharge, nares without redness, no rhinorrhea. THROAT: Mucous membranes moist, posterior pharynx clear. NECK: Neck supple, non-tender without lymphadenopathy, masses or thyromegaly. CARDIOVASCULAR: Regular rate and rhythm without murmurs, gallops, or rubs. RESPIRATORY: Diminished breath sounds absent breath sounds right upper lobe GASTROINTESTINAL: Abdomen soft, non-tender, nondistended. Bowel sounds are active. No hepato-splenomegaly, or palpable masses. No guarding. SKIN: warm, intact with no suspicious lesions or rash, good texture and turgor. NEURO: awake, alert, and oriented to person, place and time. There were no obvious focal neurologic abnormalities. Steady gait EXTREMITIES: Normal range of motion. No edema. No calf tenderness. Negative Homans sign bilaterally. BACK: Nontender without deformity or crepitance. No flank tenderness. Objective Data Vital Signs Vital Signs: Vital Signs - 24 hr 11/21/20 09:08 11/21/20 12:00 11/21/20 16:00 Temperature 98.5 F 97.2 F L Pulse Rate 88 83 82 Respiratory Rate 19 20 Blood Pressure 138/79 140/54 L Pulse Oximetry 88 L 87 L 11/22/20 00:00 Temperature 98.2 F Pulse Rate 86 Respiratory Rate 20 Blood Pressure 126/58 L Pulse Oximetry 94 Intake/Output Intake/Output: Intake & Output 11/19/20 11/20/20 11/21/20 11/22/20 23:59 23:59 23:59 23:59 Intake Total 073.795 3709 810 200 Output Total 500 200 200 Balance 135.432 1874 610 200 Meds/Results Medications: Active Medications Generic
[2020-11-22] MEDS: ramipriL 5 MG CAPSULE 10 MG PO (09:05)
[2020-11-22] MEDS: BUDESONIDE/FORMOTEROL (*SP) 160-4.5 MCG 6 GM INH 2 PUFF INHALATION ×2 (09:05→20:22)
[2020-11-22] MEDS: DOXYCYCLINE IV 100 MG in DEXTROSE 5% 100 ML IVPB ×2 (09:15→20:23)
[2020-11-22] MEDS: HYDROcodone/acetaminophen (*CRX) 5-325 MG TABLET 1 TAB PO (12:51)
[2020-11-22 16:45] VITALS: BP 99/57; PULSE 98; RESP 20; TEMP 36.7; O2SAT 94
[2020-11-22] MEDS: traZODone HCL 50 MG TABLET PO (20:24)
[2020-11-23] VITALS: BP 124/57; PULSE 74; RESP 20; TEMP 36.4; O2SAT 98
[2020-11-23] MEDS: ENOXAPARIN 100 MG/ML SYRINGE 85 MG SUB-Q ×2 (03:13→13:50)
[2020-11-23] MEDS: HYDROcodone/acetaminophen (*CRX) 5-325 MG TABLET 1 TAB PO ×2 (05:01→20:19)
[2020-11-23 08:00] VITALS: BP 125/70; PULSE 78; RESP 20; TEMP 36.5; O2SAT 95
[2020-11-23 08:13] LABS: Hematocrit 33.1 % (35.0-42.0); Hemoglobin 11.1 g/dL (11.7-13.8); Mean Corpuscular HGB Conc 33.5 g/dL (32.0-36.0); Mean Corpuscular Hemoglobin 29.8 pg (27.0-31.0); Mean Corpuscular Volume 88.7 fL (78.0-102.0); Mean Platelet Volume 9.1 fl (9.2-11.8); Platelet Count Result 371 K/mm3 (150-420); Red Blood Count 3.73 M/mm3 (4.20-5.40); Red Cell Distribution Width 13.6 % (11.6-14.4); White Blood Count 19.9 K/mm3 (4.8-10.8)
[2020-11-23 08:29] LABS: Alanine Aminotransferase 63 U/L (14-59); Alkaline Phosphatase 76 U/L (46-116); Anion Gap 2 mmol/L (8-16); Aspartate Amino Transferase 46 U/L (15-37); Bilirubin,Total 0.5 mg/dL (0.00-1.00); Blood Urea Nitrogen 18 mg/dL (7-18); Calcium 8.2 mg/dL (8.5-10.1); Carbon Dioxide 28 mmol/L (21-32); Chloride 100 mmol/L (98-108); Estimated CRCL calculation 57 ml/min; Estimated Glomerular Filt Rate > 60; Glucose 78 mg/dL (70-99); Osmolality Calculated 270 mOsm/kg (285-295); Potassium 4.2 mmol/L (3.5-5.1); Sodium 130 mmol/L (136-145); Total Protein 5.3 g/dL (6.4-8.2)
[2020-11-23] MEDS: ramipriL 5 MG CAPSULE 10 MG PO (09:00)
[2020-11-23] MEDS: predniSONE 20 MG TABLET 40 MG PO (09:18)
[2020-11-23] MEDS: BUDESONIDE/FORMOTEROL (*SP) 160-4.5 MCG 6 GM INH 2 PUFF INHALATION ×2 (09:18→20:34)
[2020-11-23 09:19] VITALS: PULSE 78
[2020-11-23] MEDS: PRAVASTATIN SODIUM 20 MG TABLET 40 MG PO (09:19)
[2020-11-23] MEDS: hydroCHLOROthiazide 25 MG TABLET 50 MG PO (09:19)
[2020-11-23] MEDS: POTASSIUM CHLORIDE 20 MEQ TABLET 40 MEQ PO (09:19)
[2020-11-23] MEDS: FLUoxetine HCL 10 MG CAPSULE 40 MG PO (09:19)
[2020-11-23] MEDS: AMIODARONE HCL 200 MG TABLET PO (09:19)
[2020-11-23] MEDS: DOXYCYCLINE IV 100 MG in DEXTROSE 5% 100 ML IVPB (09:20)
[2020-11-23] MEDS: ASPIRIN 325 MG ENTERIC TABLET PO (09:20)
[2020-11-23] MEDS: PENTOXIFYLLINE 400 MG TABCR PO ×3 (09:20→16:39)
[2020-11-23] MEDS: MECLIZINE HCL 25 MG TABLET PO (09:20)
[2020-11-23 09:46] LABS: BNP 90 pg/mL (0-100)
--- NOTE | 2020-11-23 13:24 | P.PN_ITS ---
Progress Note: A&P Assessment and Plan (1) Pneumonia: Qualifiers: Laterality: unspecified laterality Lung location: unspecified part of lung Pneumonia type: due to unspecified organism Qualified Code(s): J18.9 - Pneumonia, unspecified organism Code(s): J18.9 - Pneumonia, unspecified organism Status: Acute Assessment and Plan: * Failed p.o. therapy * Chest x-ray indicatesBilateral left greater than right edema or infection. * Continue Rocephin and doxy D3 and prednisone * Continue nebulizers and inhalers * Continue supplementary oxygen as needed * Continue to monitor oxygen * ABG indicates * WBC 18.4>23.2>28.5>34.9>27.6>19.9. Improved discontinue Solu-Medrol possible cause for elevated WBCs * Lactic acid slightly elevated on admission currently within normal limit * We will recheck labs in the a.m. (2) Hypoxemia: Code(s): R09.02 - Hypoxemia Status: Acute Assessment and Plan: * Possibly secondary to pneumonia versus pulmonary disease * Refer to pneumonia * Patient denies any shortness of breath * Patient will need a homeoxygen eval before discharge (3) Elevated d-dimer: Code(s): R79.89 - Other specified abnormal findings of blood chemistry Status: Acute Assessment and Plan: * VQ scan indicates intermediate probability of pulmonary embolism * Continue weight-based Lovenox * CTA ordered for 11/23/2020. If CT is negative lower extremity Dopplers will need to be ordered * Patient was unable to complete CTA on admission due to poor IV access. Now the patient is hydrate CTA should be completed. * If CTA is negative weightbase Lovenox discontinued (4) Electrolyte imbalance: Code(s): E87.8 - Other disorders of electrolyte and fluid balance, not elsewhere classified Status: Acute Assessment and Plan: * Improved * Sodium 129 on admission [id number] >132>130 * Potassium 3.3 on admission currently within normal limits resolved * Continue IV fluid in replaced with supplements (5) Mixed hyperlipidemia: Code(s): E78.2 - Mixed hyperlipidemia Status: Acute Assessment and Plan: * Continue statin (6) Anxiety disorder, unspecified: Code(s): F41.9 - Anxiety disorder, unspecified Status: Acute Assessment and Plan: * Continue Prozac * ccontniue Ativan prn Review of Systems Review of Systems: All systems reviewed & are unremarkable except as noted in HPI and below (10 point system review) Exam Narrative: Exam Narrative: Exam Narrative: GENERAL: Elderly fatigued female HEAD: normocephalic, atraumatic. EYES: PERRL. Sclera clear/white. Vision is grossly intact. EARS: External ears normal, auditory canals clear and without drainage, TMs normal without perforation. Hearing grossly intact. NOSE: External nose normal with no obvious nasal discharge, nares without redness, no rhinorrhea. THROAT: Mucous membranes moist, posterior pharynx clear. NECK: Neck supple, non-tender without lymphadenopathy, masses or thyromegaly. CARDIOVASCULAR: Regular rate and rhythm without murmurs, gallops, or rubs. RESPIRATORY: Diminished breath sounds absent breath sounds right upper lobe GASTROINTESTINAL: Abdomen soft, non-tender, nondistended. Bowel sounds are active. No hepato-splenomegaly, or palpable masses. No guarding. SKIN: warm, intact with no suspicious lesions or rash, good texture and turgor. NEURO: awake, alert, and oriented to person, place and time. There were no obvious focal neurologic abnormalities. Steady gait EXTREMITIES: Normal range of motion. No edema. No c
--- NOTE | 2020-11-23 13:24 | WPDPN ---
Progress Note: A&P Assessment and Plan (1) Pneumonia: Qualifiers: Laterality: unspecified laterality Lung location: unspecified part of lung Pneumonia type: due to unspecified organism Qualified Code(s): J18.9 - Pneumonia, unspecified organism Code(s): J18.9 - Pneumonia, unspecified organism Status: Acute Assessment and Plan: Failed p.o. therapy Chest x-ray indicatesBilateral left greater than right edema or infection. Continue Rocephin and doxy D3 and prednisone Continue nebulizers and inhalers Continue supplementary oxygen as needed Continue to monitor oxygen ABG indicates WBC 18.4>23.2>28.5>34.9>27.6>19.9. Improved discontinue Solu-Medrol possible cause for elevated WBCs Lactic acid slightly elevated on admission currently within normal limit We will recheck labs in the a.m. (2) Hypoxemia: Code(s): R09.02 - Hypoxemia Status: Acute Assessment and Plan: Possibly secondary to pneumonia versus pulmonary disease Refer to pneumonia Patient denies any shortness of breath Patient will need a homeoxygen eval before discharge (3) Elevated d-dimer: Code(s): R79.89 - Other specified abnormal findings of blood chemistry Status: Acute Assessment and Plan: VQ scan indicates intermediate probability of pulmonary embolism Continue weight-based Lovenox CTA ordered for 11/23/2020. If CT is negative lower extremity Dopplers will need to be ordered Patient was unable to complete CTA on admission due to poor IV access. Now the patient is hydrate CTA should be completed. If CTA is negative weightbase Lovenox discontinued (4) Electrolyte imbalance: Code(s): E87.8 - Other disorders of electrolyte and fluid balance, not elsewhere classified Status: Acute Assessment and Plan: Improved Sodium 129 on admission [id number] >132>130 Potassium 3.3 on admission currently within normal limits resolved Continue IV fluid in replaced with supplements (5) Mixed hyperlipidemia: Code(s): E78.2 - Mixed hyperlipidemia Status: Acute Assessment and Plan: Continue statin (6) Anxiety disorder, unspecified: Code(s): F41.9 - Anxiety disorder, unspecified Status: Acute Assessment and Plan: Continue Prozac ccontniue Ativan prn Review of Systems Review of Systems: All systems reviewed & are unremarkable except as noted in HPI and below (10 point system review) Exam Narrative: Exam Narrative: Exam Narrative: GENERAL: Elderly fatigued female HEAD: normocephalic, atraumatic. EYES: PERRL. Sclera clear/white. Vision is grossly intact. EARS: External ears normal, auditory canals clear and without drainage, TMs normal without perforation. Hearing grossly intact. NOSE: External nose normal with no obvious nasal discharge, nares without redness, no rhinorrhea. THROAT: Mucous membranes moist, posterior pharynx clear. NECK: Neck supple, non-tender without lymphadenopathy, masses or thyromegaly. CARDIOVASCULAR: Regular rate and rhythm without murmurs, gallops, or rubs. RESPIRATORY: Diminished breath sounds absent breath sounds right upper lobe GASTROINTESTINAL: Abdomen soft, non-tender, nondistended. Bowel sounds are active. No hepato-splenomegaly, or palpable masses. No guarding. SKIN: warm, intact with no suspicious lesions or rash, good texture and turgor. NEURO: awake, alert, and oriented to person, place and time. There were no obvious focal neurologic abnormalities. Steady gait EXTREMITIES: Normal range of motion. No edema. No calf tenderness. Negative Homans sign bilaterally. BACK: Nontender without deformity or crepitance. No flank tenderness. Objective Data Vital Signs Vital Signs: Vital Signs - 24 hr 11/22/20 16:45 11/23/20 00:00 11/23/20 08:00 Temperature 98.1 F 97.6 F 97.7 F Pulse Rate 98 74 78 Respiratory Rate 20 20 20 Blood Pressure 99/57 L 124/57 L 125/70 Pulse Oximetry 94 98 95 11/23/20 09:19 Temper
[2020-11-23 16:00] VITALS: BP 119/55; PULSE 78; RESP 20; TEMP 36.8; O2SAT 99
[2020-11-23] MEDS: LORazepam (*CRX) 0.5 MG TABLET PO (16:39)
[2020-11-23 20:00] VITALS: PULSE 80; RESP 18; O2SAT 93
[2020-11-23] MEDS: CEFDINIR 300 MG CAPSULE PO (20:19)
[2020-11-23] MEDS: APIXABAN 2.5 MG TABLET PO (20:20)
[2020-11-23] MEDS: DOXYCYCLINE HYCLATE 100 MG TABLET PO (20:21)
[2020-11-23] MEDS: traZODone HCL 50 MG TABLET PO (20:21)
[2020-11-24] VITALS: BP 122/57; PULSE 74; RESP 20; TEMP 37.1; O2SAT 95
[2020-11-24] MEDS: ENOXAPARIN 100 MG/ML SYRINGE 85 MG SUB-Q (01:12)
--- NOTE | 2020-11-24 05:46 | PC.NURSE ---
Patient told nurse she has a sore inside her left cheek. Examined inside mouth and noted that patient has a blood blister on the inside of her left cheek and also has white patches inside both cheeks and on her tongue. Charge nurse aware and [facility] [facility] will be notified.
[2020-11-24 05:56] LABS: Hematocrit 32.6 % (35.0-42.0); Hemoglobin 10.8 g/dL (11.7-13.8); Mean Corpuscular HGB Conc 33.1 g/dL (32.0-36.0); Mean Corpuscular Hemoglobin 29.4 pg (27.0-31.0); Mean Corpuscular Volume 88.8 fL (78.0-102.0); Mean Platelet Volume 9.5 fl (9.2-11.8); Platelet Count Result 352 K/mm3 (150-420); Red Blood Count 3.67 M/mm3 (4.20-5.40); Red Cell Distribution Width 13.5 % (11.6-14.4)
[2020-11-24 06:09] LABS: White Blood Count 21.1 K/mm3 (4.8-10.8)
[2020-11-24 06:12] LABS: Alanine Aminotransferase 64 U/L (14-59); Alkaline Phosphatase 79 U/L (46-116); Anion Gap 6 mmol/L (8-16); Aspartate Amino Transferase 45 U/L (15-37); Bilirubin,Total 0.5 mg/dL (0.00-1.00); Blood Urea Nitrogen 18 mg/dL (7-18); Calcium 8.2 mg/dL (8.5-10.1); Carbon Dioxide 29 mmol/L (21-32); Chloride 98 mmol/L (98-108); Estimated CRCL calculation 62 ml/min; Estimated Glomerular Filt Rate > 60; Glucose 74 mg/dL (70-99); Osmolality Calculated 276 mOsm/kg (285-295); Potassium 4.4 mmol/L (3.5-5.1); Sodium 133 mmol/L (136-145); Total Protein 4.8 g/dL (6.4-8.2)
--- NOTE | 2020-11-24 06:14 | PC.NURSE ---
Lab called to report critical WBC lab value of 21.1.
--- NOTE | 2020-11-24 06:30 | PC.NURSE ---
Dr. Smyth notified of pt's WBC of 21.1; No new orders at this time.
[2020-11-24 08:00] VITALS: BP 140/58; PULSE 80; RESP 20; TEMP 36.5; O2SAT 94
[2020-11-24] MEDS: ASPIRIN 325 MG ENTERIC TABLET PO (08:30)
[2020-11-24] MEDS: BUDESONIDE/FORMOTEROL (*SP) 160-4.5 MCG 6 GM INH 2 PUFF INHALATION ×2 (08:30→20:50)
[2020-11-24 08:31] VITALS: PULSE 78
[2020-11-24] MEDS: DOXYCYCLINE HYCLATE 100 MG TABLET PO ×2 (08:31→20:47)
[2020-11-24] MEDS: FLUoxetine HCL 10 MG CAPSULE 40 MG PO (08:31)
[2020-11-24] MEDS: AMIODARONE HCL 200 MG TABLET PO (08:31)
[2020-11-24] MEDS: PRAVASTATIN SODIUM 20 MG TABLET 40 MG PO (08:32)
[2020-11-24] MEDS: hydroCHLOROthiazide 25 MG TABLET 50 MG PO (08:32)
[2020-11-24] MEDS: predniSONE 20 MG TABLET 40 MG PO (08:33)
[2020-11-24] MEDS: APIXABAN 2.5 MG TABLET PO (08:33)
[2020-11-24] MEDS: CEFDINIR 300 MG CAPSULE PO ×2 (08:33→20:47)
[2020-11-24] MEDS: POTASSIUM CHLORIDE 20 MEQ TABLET 40 MEQ PO (08:33)
[2020-11-24] MEDS: PENTOXIFYLLINE 400 MG TABCR PO ×3 (08:33→16:51)
[2020-11-24] MEDS: MECLIZINE HCL 25 MG TABLET PO (08:34)
[2020-11-24] MEDS: ramipriL 5 MG CAPSULE 10 MG PO (08:36)
[2020-11-24] MEDS: NYSTATIN 100,000 UNITS/ML SUSP 5 ML ORAL.SUSP PO ×3 (12:29→20:49)
[2020-11-24] MEDS: HYDROcodone/acetaminophen (*CRX) 5-325 MG TABLET 1 TAB PO (13:18)
--- NOTE | 2020-11-24 14:06 | PM.IMPN ---
Progress Note: A&P Assessment and Plan (1) Pneumonia: Qualifiers: Laterality: unspecified laterality Lung location: unspecified part of lung Pneumonia type: due to unspecified organism Qualified Code(s): J18.9 - Pneumonia, unspecified organism Code(s): J18.9 - Pneumonia, unspecified organism Status: Acute Assessment and Plan: 11/24/2020 patient currently on cefdinir and doxycycline, patient's breathing improving today, and she is really looking forward to going home (2) Hypoxemia: Code(s): R09.02 - Hypoxemia Status: Acute Assessment and Plan: 11/24/2020 currently 6 L nasal cannula with SpO2 93% or greater, patient will require a home oxygen evaluation prior to discharge, VQ scan indicates intermediate probability of PE (3) Elevated d-dimer: Code(s): R79.89 - Other specified abnormal findings of blood chemistry Status: Acute Assessment and Plan: 11/24/2020 V/Q scan indicates intermediate probability of PE, Lovenox stopped Eliquis is 5 mg b.i.d., CTA was not able to be performed due to IV difficulties (4) Electrolyte imbalance: Code(s): E87.8 - Other disorders of electrolyte and fluid balance, not elsewhere classified Status: Acute Assessment and Plan: 11/24/2020 today sodium 133, will recheck in the morning (5) Mixed hyperlipidemia: Code(s): E78.2 - Mixed hyperlipidemia Status: Acute Assessment and Plan: Continue statin (6) Anxiety disorder, unspecified: Code(s): F41.9 - Anxiety disorder, unspecified Status: Acute Assessment and Plan: Continue Prozac ccontniue Ativan prn Subjective Date/time seen: 11/24/20 14:06 Patient states her breathing is better today. Patient says she wants to go home as soon as possible because she is unable to afford being here. Patient denies any chest pain abdominal issues no changes in bowel or bladder function. Says she is able to get up and walk to the bedside commode with the oxygen on without becoming short of breath. Patient will need a home oxygen evaluation before discharge. Review of Systems Constitutional: Constitutional: Reports no additional constitutional complaints Cardiovascular: Cardiovascular: Reports no additional cardiovascular complaints, Denies chest pain, Denies chest pain at rest and Denies chest pain with activity Respiratory: Respiratory: Reports no additional respiratory complaints, Denies dyspnea and Denies dyspnea on exertion (Patient's only walk short distances) Gastrointestinal: Gastrointestinal: Reports no additional gastrointestinal complaints Genitourinary: Genitourinary: Reports no additional female genitourinary complaints Exam Const: General: cooperative, comfortable, no acute distress, alert, awake and Physically active Nutritional Appearance: overweight Resp: Effort & Inspection: normal respiratory effort (at rest) Auscultation: clear to auscultation bilaterally (slight diminished in the right side) Cardio: Rate: regular rate Rhythm: regular rhythm Heart sounds: S1 normal heart sound present and S2 normal heart sound present GI: GI Palp: Yes Soft to palpation and No Tenderness to palpation present (GI) Auscultation: normal bowel sounds Neuro: General: oriented to person, oriented to place and oriented to time Cranial nerves: Yes CN's II-XII intact bilaterally (grossly intact) Speech: normal speech Objective Data Vital Signs Vital Signs: Vital Signs - 24 hr 11/23/20 16:00 11/23/20 20:00 11/24/20 00:00 Temperature 98.2 F 98.7 F Pulse Rate 78 80 74 Respiratory Rate 20 18 20 Blood Pressure 119/55 L 122/57 L Pulse Oximetry 99 93 95 11/24/20 08:00 11/24/20 08:31 Temperature 97.7 F Pulse Rate 80 78 Respiratory Rate 20 Blood Pressure 140/58 L Pulse Oximetry 94 Intake/Output Intake/Output: Intake & Output 11/21/20 11/22/20 11/23/20 11/24/20 23:59 23:59 23:59 23:59 Intake Total 795 456 0221 60
[2020-11-24 15:45] VITALS: BP 96/84; PULSE 74; RESP 18; TEMP 36.6; O2SAT 96
--- NOTE | 2020-11-24 20:21 | PC.NURSE ---
Upon entering pt. room for assesment, pt. sitting up in chair watching TV. No c/o at this time, pt. wanting to go to bed. Pt. assisted c SBA and use of her walker back to bed, pt. c/o feeling weak c noted SOB on exertion. Pt. positions self in bed, call cosby in reach.
[2020-11-24] MEDS: APIXABAN 2.5 MG TABLET 5 MG PO (20:48)
[2020-11-24] MEDS: traZODone HCL 50 MG TABLET PO (21:24)
[2020-11-24] MEDS: LORazepam (*CRX) 0.5 MG TABLET PO (22:07)
[2020-11-25] VITALS (10 sets, daily range): BP systolic 100–137; BP diastolic 45–58; PULSE 68–85; RESP 18–20; TEMP 36.1–36.9; O2SAT 79–98
[2020-11-25 06:52] LABS: Hematocrit 33.6 % (35.0-42.0); Hemoglobin 11.1 g/dL (11.7-13.8); Mean Corpuscular Hemoglobin 29.2 pg (27.0-31.0); Mean Corpuscular Volume 88.4 fL (78.0-102.0); Mean Platelet Volume 9.5 fl (9.2-11.8); Platelet Count Result 330 K/mm3 (150-420); Red Cell Distribution Width 13.6 % (11.6-14.4)
--- NOTE | 2020-11-25 07:03 | PC.NURSE ---
Lab called to report critical lab value of 22.0; Dr. Del Real notified of results and no new orders at this time.
[2020-11-25 07:04] LABS: Anion Gap 5 mmol/L (8-16); Blood Urea Nitrogen 16 mg/dL (7-18); Calcium 8.4 mg/dL (8.5-10.1); Carbon Dioxide 29 mmol/L (21-32); Chloride 98 mmol/L (98-108); Estimated CRCL calculation 64 ml/min; Estimated Glomerular Filt Rate > 60; Glucose 77 mg/dL (70-99); Osmolality Calculated 274 mOsm/kg (285-295); Potassium 4.4 mmol/L (3.5-5.1); Sodium 132 mmol/L (136-145)
[2020-11-25 07:23] LABS: Band Neutrophils Percent 0 % (0-6); Lymphocytes Absolute Manual 1.98 K/mm3 (1.1-4.5); Lymphocytes Percent Manual 9 % (18-44); Monocytes Absolute Manual 0.66 K/mm3 (0.1-0.90); Monocytes Percent Manual 3 % (3-9); Myelocytes Percent 2 %; Neutrophils Absolute Manual 18.92 K/mm3 (1.7-7.2); Neutrophils Percent Manual 86 % (46-73); Total Cells Counted 100
[2020-11-25 07:24] LABS: Platelet Estimate Adequate (Adequate)
[2020-11-25] MEDS: APIXABAN 2.5 MG TABLET 5 MG PO ×2 (08:24→20:30)
[2020-11-25] MEDS: POTASSIUM CHLORIDE 20 MEQ TABLET 40 MEQ PO (08:24)
[2020-11-25] MEDS: CEFDINIR 300 MG CAPSULE PO ×2 (08:25→20:30)
[2020-11-25] MEDS: DOXYCYCLINE HYCLATE 100 MG TABLET PO ×2 (08:25→20:30)
[2020-11-25] MEDS: predniSONE 20 MG TABLET 40 MG PO (08:25)
[2020-11-25] MEDS: PENTOXIFYLLINE 400 MG TABCR PO ×3 (08:26→16:58)
[2020-11-25] MEDS: PRAVASTATIN SODIUM 20 MG TABLET 40 MG PO (08:26)
[2020-11-25] MEDS: hydroCHLOROthiazide 25 MG TABLET 50 MG PO (08:26)
[2020-11-25] MEDS: ASPIRIN 325 MG ENTERIC TABLET PO (08:27)
[2020-11-25] MEDS: MECLIZINE HCL 25 MG TABLET PO (08:27)
[2020-11-25] MEDS: FLUoxetine HCL 10 MG CAPSULE 40 MG PO (08:27)
[2020-11-25] MEDS: AMIODARONE HCL 200 MG TABLET PO (08:27)
[2020-11-25] MEDS: NYSTATIN 100,000 UNITS/ML SUSP 5 ML ORAL.SUSP PO ×4 (08:28→20:30)
[2020-11-25] MEDS: BUDESONIDE/FORMOTEROL (*SP) 160-4.5 MCG 6 GM INH 2 PUFF INHALATION ×2 (08:28→20:31)
[2020-11-25] MEDS: ramipriL 5 MG CAPSULE 10 MG PO (08:29)
--- NOTE | 2020-11-25 11:36 | HOMEO2EVAL ---
Home Oxygen Evaluation RC: Home Oxygen (O2) Evaluation Start: 11/25/20 10:20 Freq: ONCE Status: Active Protocol: RPE Activity Type Activity Date Activity User E-Sign Co-Sign Detail Recorded Client Recorded Date Recorded By Document 11/25/20 11:10 SJB [id number] 11/25/20 11:34 SJB Document 11/25/20 11:11 SJB [id number] 11/25/20 11:34 SJB Document 11/25/20 11:13 SJB [id number] 11/25/20 11:34 SJB Document 11/25/20 11:16 SJB [id number] 11/25/20 11:34 SJB Document 11/25/20 11:18 SJB [id number] 11/25/20 11:34 SJB Document 11/25/20 11:23 SJB [id number] 11/25/20 11:34 SJB 11/25/20 11/25/20 11/25/20 11:10 11:11 11:13 Home O2 Evaluation Test Phase Resting Resting Resting Oxygen Delivery Room Air Nasal Cannula Nasal Cannula Oxygen Flow Rate (L/min) 2 3 Pulse Oximetry (90-100 %) 79 L 84 L 91 Pulse Rate (60-100 beats/min) 79 80 79 Activity Tolerance Rating of Perceived Dyspnea (PD) Rate of Perceived Exertion (PE) Ambulation Distance (feet) Home Oxygen Evaluation Comments Still at rest, will turn 02 up to 3 lpm. Treatment Charges O2 Evaluation 11/25/20 11/25/20 11/25/20 11:16 11:18 11:23 Home O2 Evaluation Test Phase Exercise Exercise Exercise Oxygen Delivery Nasal Cannula Nasal Cannula Nasal Cannula Oxygen Flow Rate (L/min) 3 4 6 Pulse Oximetry (90-100 %) 84 L 87 L 94 Pulse Rate (60-100 beats/min) 76 85 80 Activity Tolerance Fair Poor Poor Rating of Perceived Dyspnea (PD) +2 Mild, Some +3 Moderate Difficulty, Difficulty, But Noticeable to Can Continue the Observer Rate of Perceived Exertion (PE) 14 16 16 Ambulation Distance (feet) 24 24 48 Home Oxygen Evaluation Comments Stopped to rest Turning up 02 Pt sustained an , 02 turned up to 6 lpm, pt Sp02 of 92% to 4 lpm feels like she and above on 6 can walk back lpm. Pt to her chair exercise now. tolerance was fairly poor stating her legs were weak. Treatment Charges
--- NOTE | 2020-11-25 12:00 | ECHO_ITS ---
Patient Info Name: Lauryn Romeo Age: 75 years : 1945 Gender: Female Ht: 63 in Wt: 187 lbs BSA: 1.98 m2 HR: 75 bpm BP: 128 / 50 mmHg Heart Rhythm: Sinus Rhythm Technical Quality: Good Exam Date: 11/25/2020 12:31 PM Exam Location: [facility] Patient Status: Inpatient Admit Date: 11/19/2020 Staff Ordering Physician: Prabhakar Del Real MD Transcript Evaluator: Henok Buchanan RDCS Attending Provider: Jose Stroud MD Referring Physician: Nasima AYON; Exam Type: CA echo doppler color flow Study Info Indications R06.02 - Shortness of breath Complete two-dimensional, color flow and Doppler transthoracic echocardiogram is performed. History/Risk Factors Pneumonia, hypoxemia, SOB, HTN. Summary 1. Complete two-dimensional, color flow and Doppler transthoracic echocardiogram is performed. 2. Left ventricular chamber dimension is mildly enlarged. 3. Left ventricular systolic function is moderately reduced, estimated at 35-40%. 4. There is mildly increased left ventricular wall thickness. 5. Left ventricular septal wall motion is abnormal with septal motion related to bundle branch block. 6. The left ventricular diastolic function is abnormal. 7. E/e' 21 is elevated. 8. Left atrial chamber dimension is mildly enlarged. 9. There is mild aortic valve sclerosis. 10. The mitral valve has moderately calcified annulus. 11. Moderate pulmonary hypertension, estimated pulmonary arterial systolic pressure is 59 mmHg. Left Ventricle E/e' 21 is elevated. Left ventricular chamber dimension is mildly enlarged. Left ventricular systolic function is moderately reduced, estimated at 35-40%. There is mildly increased left ventricular wall thickness. Left ventricular septal wall motion is abnormal with septal motion related to bundle branch block. The left ventricular diastolic function is abnormal. Right Ventricle Right ventricular chamber dimension is normal. Right ventricular systolic function is normal. Left Atria Left atrial chamber dimension is mildly enlarged. Right Atria Right atrial chamber dimension is normal. Aortic Valve The aortic valve is probable trileaflet. There is mild aortic valve sclerosis. There is no aortic valve stenosis. There is no aortic valve regurgitation. Pulmonic Valve There is no pulmonic regurgitation. Mitral Valve The mitral valve has moderately calcified annulus. There is no mitral valve stenosis. There is no mitral valve regurgitation. Tricuspid Valve There is no tricuspid valve regurgitation. Moderate pulmonary hypertension, estimated pulmonary arterial systolic pressure is 59 mmHg. Pericardium/Pleural There is no pericardial effusion. Inferior Vena Cava Normal inferior vena cava with >50% collapse upon inspiration consistent with normal right atrial pressure, 5 mmHg. Aorta The aortic root size at the sinus of Valsalva is normal. Left Ventricular Outflow Tract Name Value Normal LVOT 2D LVOT Diameter 1.8 cm LVOT Doppler LVOT Peak Velocity 96 cm/s LVOT Peak Gradient 4 mmHg LVOT M
[2020-11-25] MEDS: traMADol HCL (*CRX) 25 MG TABLET PO (13:30)
--- NOTE | 2020-11-25 14:50 | PM.IMPN ---
Progress Note: A&P Assessment and Plan (1) Pneumonia: Qualifiers: Laterality: unspecified laterality Lung location: unspecified part of lung Pneumonia type: due to unspecified organism Qualified Code(s): J18.9 - Pneumonia, unspecified organism <Benjamin TaylorROLANDC - Last Filed: 11/25/20 14:56> Code(s): J18.9 - Pneumonia, unspecified organism <Benjamin TaylorROLANDC - Last Filed: 11/25/20 14:56> Status: Acute <Benjamin TaylorREESE-C - Last Filed: 11/25/20 14:56> Assessment and Plan: 11/24/2020 patient currently on cefdinir and doxycycline, patient's breathing improving today, and she is really looking forward to going home 11/25/2020 continue with antibiotic treatment as above, repeat chest x-ray indicates stable findings and that images are consistent with pneumonia <Benjamin TaylorREESE-C - Last Filed: 11/25/20 14:56> (2) Hypoxemia: Code(s): R09.02 - Hypoxemia <Benjamin TaylorREESE-C - Last Filed: 11/25/20 14:56> Status: Acute <Benjamin TaylorREESE-C - Last Filed: 11/25/20 14:56> Assessment and Plan: 11/24/2020 currently 6 L nasal cannula with SpO2 93% or greater, patient will require a home oxygen evaluation prior to discharge, VQ scan indicates intermediate probability of PE 11/25/2020 6 minutes walk test for home oxygen performed today and patient did fail this and will have a need for home O2 at 6 L per minute, company has been called in oxygen will be delivered tomorrow and be ready for patient's discharge, patient states her breathing is better and her L flow was decreased to 5 <Benjamin NaylorREESE resendiz-C - Last Filed: 11/25/20 14:56> (3) Elevated d-dimer: Code(s): R79.89 - Other specified abnormal findings of blood chemistry <Benjamin NaylorREESE resendiz-C - Last Filed: 11/25/20 14:56> Status: Acute <Benjamin TaylorREESE-C - Last Filed: 11/25/20 14:56> Assessment and Plan: 11/24/2020 V/Q scan indicates intermediate probability of PE, Lovenox stopped Eliquis is 5 mg b.i.d., CTA was not able to be performed due to IV difficulties 11/25/2020 will continue on Eliquis <Benjamin BerkowitzROLAND GaliciaC - Last Filed: 11/25/20 14:56> (4) Electrolyte imbalance: Code(s): E87.8 - Other disorders of electrolyte and fluid balance, not elsewhere classified <Benjamin WooROLAND GaliciaC - Last Filed: 11/25/20 14:56> Status: Acute <Benjamin WooELIANE Galicia - Last Filed: 11/25/20 14:56> Assessment and Plan: 11/24/2020 today sodium 133, will recheck in the morning 11/25/2020 sodium 132 today may discharge patient tomorrow on sodium pills <ELIANE Guo - Last Filed: 11/25/20 14:56> (5) Mixed hyperlipidemia: Code(s): E78.2 - Mixed hyperlipidemia <ROLAND GuoC - Last Filed: 11/25/20 14:56> Status: Acute <Benjamin WooELIANE Galicia - Last Filed: 11/25/20 14:56> Assessment and Plan: Continue statin <ROLAND GuoC - Last Filed: 11/25/20 14:56> (6) Anxiety disorder, unspecified: Code(s): F41.9 - Anxiety disorder, unspecified <ROLAND GuoC - Last Filed: 11/25/20 14:56> Status: Acute <Benjamin WooReanna Taylor APN-Sandra - Last Filed: 11/25/20 14:56> Assessment and Plan: Continue Prozac ccontniue Ativan prn <Benjamin WooROLAND GaliciaC - Last Filed: 11/25/20 14:56> Subjective Date/time seen: 11/25/20 14:50 Again patient states that she is feeling better today than yesterday and stated that yesterday she felt horrible however yesterday she informed me she felt better than the day prior. Patient is really looking forward to going home. Patient states she is able to get up and go to the restroom without difficulty such as increased work of breathing or shortness of breath. She denies any chest pain abdominal issues bladder issues. <Benjamin Taylor, CASE MANAGEMENT ASSOCIATE-C - Last Filed: 11/25/20 14:56> Review of Systems Constitutional
[2020-11-25] MEDS: ACETAMINOPHEN 325 MG TABLET 650 MG PO (20:31)
[2020-11-25] MEDS: traZODone HCL 50 MG TABLET PO (20:31)
--- NOTE | 2020-11-26 02:15 | PC.NURSE ---
Sleeping, no signs of distress.
[2020-11-26 08:00] VITALS: BP 152/61; PULSE 77; RESP 20; TEMP 36.6; O2SAT 90
[2020-11-26 08:29] LABS: Hematocrit 36.4 % (35.0-42.0); Hemoglobin 12.1 g/dL (11.7-13.8); Mean Corpuscular HGB Conc 33.2 g/dL (32.0-36.0); Mean Corpuscular Hemoglobin 29.9 pg (27.0-31.0); Mean Corpuscular Volume 89.9 fL (78.0-102.0); Mean Platelet Volume 9.9 fl (9.2-11.8); Platelet Count Result 342 K/mm3 (150-420); Red Blood Count 4.05 M/mm3 (4.20-5.40); Red Cell Distribution Width 13.8 % (11.6-14.4)
[2020-11-26 08:38] LABS: White Blood Count 21.7 K/mm3 (4.8-10.8)
[2020-11-26 08:42] LABS: Anion Gap 6 mmol/L (8-16); Blood Urea Nitrogen 17 mg/dL (7-18); Calcium 8.8 mg/dL (8.5-10.1); Carbon Dioxide 26 mmol/L (21-32); Chloride 98 mmol/L (98-108); Estimated CRCL calculation 66 ml/min; Estimated Glomerular Filt Rate > 60; Glucose 80 mg/dL (70-99); Osmolality Calculated 270 mOsm/kg (285-295); Potassium 4.8 mmol/L (3.5-5.1); Sodium 130 mmol/L (136-145)
[2020-11-26] MEDS: DOXYCYCLINE HYCLATE 100 MG TABLET PO ×2 (08:45→21:10)
[2020-11-26] MEDS: CEFDINIR 300 MG CAPSULE PO ×2 (08:45→21:10)
[2020-11-26] MEDS: MECLIZINE HCL 25 MG TABLET PO (08:46)
[2020-11-26] MEDS: FLUoxetine HCL 10 MG CAPSULE 40 MG PO (08:46)
[2020-11-26] MEDS: PENTOXIFYLLINE 400 MG TABCR PO ×3 (08:46→16:52)
[2020-11-26] MEDS: APIXABAN 2.5 MG TABLET 5 MG PO ×2 (08:46→21:10)
[2020-11-26] MEDS: AMIODARONE HCL 200 MG TABLET PO (08:47)
[2020-11-26] MEDS: ASPIRIN 325 MG ENTERIC TABLET PO (08:47)
[2020-11-26] MEDS: predniSONE 20 MG TABLET 40 MG PO (08:48)
[2020-11-26] MEDS: ramipriL 5 MG CAPSULE 10 MG PO (08:48)
[2020-11-26] MEDS: PRAVASTATIN SODIUM 20 MG TABLET 40 MG PO (08:48)
[2020-11-26] MEDS: POTASSIUM CHLORIDE 20 MEQ TABLET 40 MEQ PO (08:49)
[2020-11-26] MEDS: NYSTATIN 100,000 UNITS/ML SUSP 5 ML ORAL.SUSP PO ×4 (08:50→21:09)
[2020-11-26] MEDS: BUDESONIDE/FORMOTEROL (*SP) 160-4.5 MCG 6 GM INH 2 PUFF INHALATION ×2 (08:50→21:10)
--- NOTE | 2020-11-26 12:13 | PM.IMPN ---
Progress Note: A&P Assessment and Plan (1) Pneumonia: Qualifiers: Laterality: unspecified laterality Lung location: unspecified part of lung Pneumonia type: due to unspecified organism Qualified Code(s): J18.9 - Pneumonia, unspecified organism Code(s): J18.9 - Pneumonia, unspecified organism Status: Acute Assessment and Plan: 11/24/2020 patient currently on cefdinir and doxycycline, patient's breathing improving today, and she is really looking forward to going home 11/25/2020 continue with antibiotic treatment as above, repeat chest x-ray indicates stable findings and that images are consistent with pneumonia 11/26/2020 continue with antibiotic treatment, at rest patient was breathing fine, shortly after working with physical therapy increased work of breathing and 3-4 word sentences (2) Hypoxemia: Code(s): R09.02 - Hypoxemia Status: Acute Assessment and Plan: 11/24/2020 currently 6 L nasal cannula with SpO2 93% or greater, patient will require a home oxygen evaluation prior to discharge, VQ scan indicates intermediate probability of PE 11/25/2020 6 minutes walk test for home oxygen performed today and patient did fail this and will have a need for home O2 at 6 L per minute, company has been called in oxygen will be delivered tomorrow and be ready for patient's discharge, patient states her breathing is better and her L flow was decreased to 5 11/26/2020 waiting to hear from oxygen company for O2 delivery, according to PT SpO2 dropped to low 80s after walking 40 ft and patient was able to walk a total of 80 ft, patient states this is how she is normally at home however she does not have oxygen at home (3) Elevated d-dimer: Code(s): R79.89 - Other specified abnormal findings of blood chemistry Status: Acute Assessment and Plan: 11/24/2020 V/Q scan indicates intermediate probability of PE, Lovenox stopped Eliquis is 5 mg b.i.d., CTA was not able to be performed due to IV difficulties 11/25/2020 will continue on Eliquis 11/26/2020 will add Eliquis to discharge medications, patient informed case management that she had a few pills at home left over (4) Electrolyte imbalance: Code(s): E87.8 - Other disorders of electrolyte and fluid balance, not elsewhere classified Status: Acute Assessment and Plan: 11/24/2020 today sodium 133, will recheck in the morning 11/25/2020 sodium 132 today may discharge patient tomorrow on sodium pills 11/26/2020 starting sodium tablets today as her sodium was 130 this morning (5) Mixed hyperlipidemia: Code(s): E78.2 - Mixed hyperlipidemia Status: Acute Assessment and Plan: Continue statin (6) Anxiety disorder, unspecified: Code(s): F41.9 - Anxiety disorder, unspecified Status: Acute Assessment and Plan: Continue Prozac Continue Ativan prn Subjective Date/time seen: 11/26/20 12:13 Patient was looking forward to going home to unfortunately during physical therapy her SpO2 decreased into the low 80s. She was informed during rounds that she would need to stay another night which made her quite upset to the point she was going to sign out AMA. After. Patient was able to speak with her family convinced her otherwise and has agreed to stay another night. Patient states that her breathing is like it always has been when she is at home. However the last 2 days patient did say that her breathing had improved each day. Patient did display increased work of breathing. And while standing in the room with physical therapy and on 6 L of oxygen her SpO2 was reading 91%. Patient denies any other issues and states she just wants to go home. Review of Systems Constitutional: Constitutional: Reports no additional constitutional complaints Cardiovascular: Cardiovascular: Reports no additional cardiovascular complaints, Denies chest pain, Denies chest pain at rest and Denies chest pain with activity Resp
--- NOTE | 2020-11-26 12:27 | PC.NURSE ---
Responded to call light, patient up to commode, tolerated well, slight dubose noted, states is normal for her, oxygen at 6L NC at this time
[2020-11-26] MEDS: SODIUM CHLORIDE 1 GM TABLET PO (12:59)
[2020-11-26 16:00] VITALS: BP 117/44; PULSE 73; RESP 20; TEMP 36.3; O2SAT 100
[2020-11-26 20:00] VITALS: O2SAT 100
[2020-11-27] VITALS: BP 131/51; PULSE 70; RESP 20; TEMP 36.2; O2SAT 93
[2020-11-27 05:28] LABS: Hematocrit 35.5 % (35.0-42.0); Hemoglobin 11.5 g/dL (11.7-13.8); Mean Corpuscular HGB Conc 32.4 g/dL (32.0-36.0); Mean Corpuscular Hemoglobin 28.8 pg (27.0-31.0); Mean Platelet Volume 9.4 fl (9.2-11.8); Platelet Count Result 352 K/mm3 (150-420); Red Blood Count 3.99 M/mm3 (4.20-5.40); Red Cell Distribution Width 13.6 % (11.6-14.4)
[2020-11-27 05:36] LABS: White Blood Count 22.8 K/mm3 (4.8-10.8)
[2020-11-27 05:38] LABS: Anion Gap 4 mmol/L (8-16); Blood Urea Nitrogen 19 mg/dL (7-18); Calcium 8.4 mg/dL (8.5-10.1); Carbon Dioxide 29 mmol/L (21-32); Chloride 99 mmol/L (98-108); Estimated CRCL calculation 62 ml/min; Estimated Glomerular Filt Rate > 60; Glucose 73 mg/dL (70-99); Osmolality Calculated 275 mOsm/kg (285-295); Potassium 4.6 mmol/L (3.5-5.1); Sodium 132 mmol/L (136-145)
--- NOTE | 2020-11-27 06:16 | PC.NURSE ---
Lab called with critical WBC value of 22.8.
--- NOTE | 2020-11-27 06:23 | PC.NURSE ---
Dr. Stroud notified of pt's WBC of 21.7; No new orders at this time.
--- NOTE | 2020-11-27 06:30 | PC.NURSE ---
Dr. Stroud notified of critical WBC lab value of 22.8; No new orders at this time
[2020-11-27 08:00] VITALS: BP 127/49; PULSE 77; RESP 20; TEMP 36.8; O2SAT 89
[2020-11-27] MEDS: CEFDINIR 300 MG CAPSULE PO ×2 (09:30→20:17)
[2020-11-27] MEDS: DOXYCYCLINE HYCLATE 100 MG TABLET PO ×2 (09:30→20:17)
[2020-11-27] MEDS: ASPIRIN 325 MG ENTERIC TABLET PO (09:30)
[2020-11-27] MEDS: AMIODARONE HCL 200 MG TABLET PO (09:31)
[2020-11-27] MEDS: SODIUM CHLORIDE 1 GM TABLET PO (09:31)
[2020-11-27] MEDS: APIXABAN 2.5 MG TABLET 5 MG PO ×2 (09:31→20:17)
[2020-11-27] MEDS: PENTOXIFYLLINE 400 MG TABCR PO ×3 (09:32→17:03)
[2020-11-27] MEDS: FLUoxetine HCL 10 MG CAPSULE 40 MG PO (09:32)
[2020-11-27] MEDS: PRAVASTATIN SODIUM 20 MG TABLET 40 MG PO (09:32)
[2020-11-27] MEDS: predniSONE 20 MG TABLET 40 MG PO (09:33)
[2020-11-27] MEDS: MECLIZINE HCL 25 MG TABLET PO (09:33)
[2020-11-27] MEDS: POTASSIUM CHLORIDE 20 MEQ TABLET 40 MEQ PO (09:34)
[2020-11-27] MEDS: NYSTATIN 100,000 UNITS/ML SUSP 5 ML ORAL.SUSP PO ×4 (09:35→20:17)
[2020-11-27] MEDS: ramipriL 5 MG CAPSULE 10 MG PO (09:35)
[2020-11-27] MEDS: BUDESONIDE/FORMOTEROL (*SP) 160-4.5 MCG 6 GM INH 2 PUFF INHALATION ×2 (09:36→20:17)
--- NOTE | 2020-11-27 11:18 | PC.NURSE ---
Patient refusing to stay any longer, daughter up dated on what transpired on rounds, would like patient to stay another day for diuretic therapy to see if this improves her breathing, daughter states she will call back in to talk with her mom to see if she can talk her in to staying
[2020-11-27] MEDS: ACETAMINOPHEN 325 MG TABLET 650 MG PO (11:22)
[2020-11-27] MEDS: CALCIUM CARBONATE (TUMS) 500 MG (200 MG ELEMENTAL) PO (11:24)
[2020-11-27] MEDS: FUROSEMIDE 40 MG TABLET PO (12:42)
--- NOTE | 2020-11-27 13:24 | PM.IMPN ---
Progress Note: A&P Assessment and Plan (1) Pneumonia: Qualifiers: Laterality: unspecified laterality Lung location: unspecified part of lung Pneumonia type: due to unspecified organism Qualified Code(s): J18.9 - Pneumonia, unspecified organism Code(s): J18.9 - Pneumonia, unspecified organism Status: Acute Assessment and Plan: 11/24/2020 patient currently on cefdinir and doxycycline, patient's breathing improving today, and she is really looking forward to going home 11/25/2020 continue with antibiotic treatment as above, repeat chest x-ray indicates stable findings and that images are consistent with pneumonia 11/26/2020 continue with antibiotic treatment, at rest patient was breathing fine, shortly after working with physical therapy increased work of breathing and 3-4 word sentences 11/27/2020 since patient wanted to leave AMA yesterday and again today I wanted to assure that she would have the necessary equipment and medications at her disposal should she choose to use them so as to continue with some intervention to provide comfort with the direction of resolution of her respiratory issues. Working along with care coordination we wanted to ensure The patient's home oxygen was delivered which it has been today and at time of either discharge or the patient wants to sign out AMA my plan is to have medications transmitted to her pharmacy of choice for her to tow picker if she chooses to do so. Lung sounds are clear today. (2) Hypoxemia: Code(s): R09.02 - Hypoxemia Status: Acute Assessment and Plan: 11/24/2020 currently 6 L nasal cannula with SpO2 93% or greater, patient will require a home oxygen evaluation prior to discharge, VQ scan indicates intermediate probability of PE 11/25/2020 6 minutes walk test for home oxygen performed today and patient did fail this and will have a need for home O2 at 6 L per minute, company has been called in oxygen will be delivered tomorrow and be ready for patient's discharge, patient states her breathing is better and her L flow was decreased to 5 11/26/2020 waiting to hear from oxygen company for O2 delivery, according to PT SpO2 dropped to low 80s after walking 40 ft and patient was able to walk a total of 80 ft, patient states this is how she is normally at home however she does not have oxygen at home 11/27/2020 I was informed by physical therapy this afternoon that patient was able to walk 80 ft today with her SpO2 dropping only to 91% however after returning to the room while patient was at rest her SpO2 did drop down to 88% this is definitely an improvement from yesterday and I plan to share this with the entire healthcare team today and tomorrow during rounding. (3) Elevated d-dimer: Code(s): R79.89 - Other specified abnormal findings of blood chemistry Status: Acute Assessment and Plan: 11/24/2020 V/Q scan indicates intermediate probability of PE, Lovenox stopped Eliquis is 5 mg b.i.d., CTA was not able to be performed due to IV difficulties 11/25/2020 will continue on Eliquis 11/26/2020 will add Eliquis to discharge medications, patient informed case management that she had a few pills at home left over 11/27/2020 Continue Eliquis in house and will order this at patient's pharmacy of choice for her to tow picker if she chooses to do so at discharge (4) Electrolyte imbalance: Code(s): E87.8 - Other disorders of electrolyte and fluid balance, not elsewhere classified Status: Acute Assessment and Plan: 11/24/2020 today sodium 133, will recheck in the morning 11/25/2020 sodium 132 today may discharge patient tomorrow on sodium pills 11/26/2020 starting sodium tablets today as her sodium was 130 this morning 11/27/2020 sodium improved today to 133 continue with sodium tablets (5) Mixed hyperlipidemia: Code(s): E78.2 - Mixed hyperlipidemia Status: Acute Assessment and Plan: Continue statin (6) Anxiety disorder, unspec
[2020-11-27 16:00] VITALS: BP 129/64; PULSE 74; TEMP 36.8; O2SAT 96
--- NOTE | 2020-11-27 19:08 | PC.NURSE ---
report to nabil blake
[2020-11-27 23:52] VITALS: BP 133/48; PULSE 70; RESP 18; TEMP 36.4; O2SAT 95
--- NOTE | 2020-11-28 02:17 | PC.NURSE ---
pt sleeping, no evidence of distress noted, belongings within reach
[2020-11-28] MEDS: ACETAMINOPHEN 325 MG TABLET 650 MG PO ×2 (05:25→09:00)
[2020-11-28 05:30] LABS: Basophils Absolute Auto 0.03 K/mm3 (0.00-0.10); Basophils Percent Auto 0.2 % (0.0-1.0); Eosinophils Absolute Auto 0.08 K/mm3 (0.02-0.50); Eosinophils Percent Auto 0.4 % (1.0-6.0); Hematocrit 34.2 % (35.0-42.0); Hemoglobin 11.2 g/dL (11.7-13.8); Immature Granulocyte Absolute 0.33 K/mm3 (0.00-0.00); Immature Granulocyte Percent A 1.8 % (0.0-0.0); Lymphocytes Absolute Auto 1.36 K/mm3 (1.10-4.50); Lymphocytes Percent Auto 7.3 % (18.0-42.0); Mean Corpuscular HGB Conc 32.7 g/dL (32.0-36.0); Mean Corpuscular Volume 88.6 fL (78.0-102.0); Mean Platelet Volume 9.4 fl (9.2-11.8); Monocytes Percent Auto 3.2 % (2.0-11.0); Neutrophils Absolute Auto 16.1 K/mm3 (1.7-7.2); Neutrophils Percent Auto 87.1 % (50.0-70.0); Platelet Count Result 324 K/mm3 (150-420); Red Blood Count 3.86 M/mm3 (4.20-5.40); Red Cell Distribution Width 13.5 % (11.6-14.4); White Blood Count 18.5 K/mm3 (4.8-10.8)
[2020-11-28 05:46] LABS: Alanine Aminotransferase 80 U/L (14-59); Albumin Level 2.2 g/dL (3.4-5.0); Alkaline Phosphatase 92 U/L (46-116); Anion Gap 5 mmol/L (8-16); Aspartate Amino Transferase 39 U/L (15-37); Bilirubin,Total 0.5 mg/dL (0.00-1.00); Blood Urea Nitrogen 15 mg/dL (7-18); Calcium 8.5 mg/dL (8.5-10.1); Carbon Dioxide 29 mmol/L (21-32); Chloride 98 mmol/L (98-108); Estimated CRCL calculation 61 ml/min; Estimated Glomerular Filt Rate > 60; Glucose 69 mg/dL (70-99); Osmolality Calculated 272 mOsm/kg (285-295); Potassium 4.3 mmol/L (3.5-5.1); Sodium 132 mmol/L (136-145)
[2020-11-28 07:56] VITALS: BP 142/56; PULSE 73; RESP 20; TEMP 36.8; O2SAT 95
[2020-11-28] MEDS: NYSTATIN 100,000 UNITS/ML SUSP 5 ML ORAL.SUSP PO ×2 (08:58→12:28)
[2020-11-28] MEDS: POTASSIUM CHLORIDE 20 MEQ TABLET 40 MEQ PO (08:58)
[2020-11-28] MEDS: PENTOXIFYLLINE 400 MG TABCR PO ×2 (08:59→12:28)
[2020-11-28] MEDS: CEFDINIR 300 MG CAPSULE PO (08:59)
[2020-11-28] MEDS: DOXYCYCLINE HYCLATE 100 MG TABLET PO (08:59)
[2020-11-28] MEDS: SODIUM CHLORIDE 1 GM TABLET PO (08:59)
[2020-11-28] MEDS: ASPIRIN 325 MG ENTERIC TABLET PO (08:59)
[2020-11-28] MEDS: PRAVASTATIN SODIUM 20 MG TABLET 40 MG PO (08:59)
[2020-11-28 09:00] VITALS: PULSE 73
[2020-11-28] MEDS: FLUoxetine HCL 10 MG CAPSULE 40 MG PO (09:00)
[2020-11-28] MEDS: APIXABAN 2.5 MG TABLET 5 MG PO (09:00)
[2020-11-28] MEDS: AMIODARONE HCL 200 MG TABLET PO (09:00)
[2020-11-28] MEDS: MECLIZINE HCL 25 MG TABLET PO (09:01)
[2020-11-28] MEDS: ramipriL 5 MG CAPSULE 10 MG PO (09:05)
[2020-11-28] MEDS: BUDESONIDE/FORMOTEROL (*SP) 160-4.5 MCG 6 GM INH 2 PUFF INHALATION (09:08)
[2020-11-28] MEDS: predniSONE 20 MG, predniSONE 10 MG 30 MG PO (09:16)
--- NOTE | 2020-11-28 12:47 | PM.DS ---
DS: Admitting Diagnosis Admitting Diagnosis Admitting Diagnosis: Pneumonia, intermittent probability of PE, with multiple risk factors for PE DS: Discharge Diagnosis Discharge Diagnosis (1) Pneumonia: Qualifiers: Laterality: unspecified laterality Lung location: unspecified part of lung Pneumonia type: due to unspecified organism Qualified Code(s): J18.9 - Pneumonia, unspecified organism Code(s): J18.9 - Pneumonia, unspecified organism Status: Acute Assessment and Plan: 11/24/2020 patient currently on cefdinir and doxycycline, patient's breathing improving today, and she is really looking forward to going home 11/25/2020 continue with antibiotic treatment as above, repeat chest x-ray indicates stable findings and that images are consistent with pneumonia 11/26/2020 continue with antibiotic treatment, at rest patient was breathing fine, shortly after working with physical therapy increased work of breathing and 3-4 word sentences 11/27/2020 since patient wanted to leave AMA yesterday and again today I wanted to assure that she would have the necessary equipment and medications at her disposal should she choose to use them so as to continue with some intervention to provide comfort with the direction of resolution of her respiratory issues. Working along with care coordination we wanted to ensure The patient's home oxygen was delivered which it has been today and at time of either discharge or the patient wants to sign out AMA my plan is to have medications transmitted to her pharmacy of choice for her to pick up and delivery driver if she chooses to do so. Lung sounds are clear today. (2) Hypoxemia: Code(s): R09.02 - Hypoxemia Status: Acute Assessment and Plan: 11/24/2020 currently 6 L nasal cannula with SpO2 93% or greater, patient will require a home oxygen evaluation prior to discharge, VQ scan indicates intermediate probability of PE 11/25/2020 6 minutes walk test for home oxygen performed today and patient did fail this and will have a need for home O2 at 6 L per minute, company has been called in oxygen will be delivered tomorrow and be ready for patient's discharge, patient states her breathing is better and her L flow was decreased to 5 11/26/2020 waiting to hear from oxygen company for O2 delivery, according to PT SpO2 dropped to low 80s after walking 40 ft and patient was able to walk a total of 80 ft, patient states this is how she is normally at home however she does not have oxygen at home 11/27/2020 I was informed by physical therapy this afternoon that patient was able to walk 80 ft today with her SpO2 dropping only to 91% however after returning to the room while patient was at rest her SpO2 did drop down to 88% this is definitely an improvement from yesterday and I plan to share this with the entire healthcare team today and tomorrow during rounding. (3) Elevated d-dimer: Code(s): R79.89 - Other specified abnormal findings of blood chemistry Status: Acute Assessment and Plan: 11/24/2020 V/Q scan indicates intermediate probability of PE, Lovenox stopped Eliquis is 5 mg b.i.d., CTA was not able to be performed due to IV difficulties 11/25/2020 will continue on Eliquis 11/26/2020 will add Eliquis to discharge medications, patient informed case management that she had a few pills at home left over 11/27/2020 Continue Eliquis in house and will order this at patient's pharmacy of choice for her to pick up and delivery driver if she chooses to do so at discharge (4) Electrolyte imbalance: Code(s): E87.8 - Other disorders of electrolyte and fluid balance, not elsewhere classified Status: Acute Assessment and Plan: 11/24/2020 today sodium 133, will recheck in the morning 11/25/2020 sodium 132 today may discharge patient tomorrow on sodium pills 11/26/2020 starting sodium tablets today as her sodium was 130 this morning 11/27/2020 sodium improved today to 133 continue with sodium tablets (5) Mixed hyperli
--- NOTE | 2020-11-30 11:29 | PC.NURSE ---
Pt states she received and understood her discharge instructions. Pt also state Your nurses are wonderful but I don't care for your doctors or your nurse practitioner .
== END 2020-11-28 14:35 | disposition home or self-care (01) | DRG 195 ==
LOC: CHSED 12:49 → CHS2ND 13:17
PROVIDERS: Nurse Practitioner; Nurse Practitioner Family; Admitting Provider Emergency Medicine; Emergency Provider Emergency Medicine; PCP Family Medicine; Visit Provider Emergency Medicine
DX: J18.9 Pneumonia, unspecified organism (principal); J44.9 Chronic obstructive pulmonary disease, unspecified; I50.9 Heart failure, unspecified; R09.02 Hypoxemia; J43.9 Emphysema, unspecified; I35.8 Other nonrheumatic aortic valve disorders; I27.20 Pulmonary hypertension, unspecified; E87.8 Other disorders of electrolyte and fluid balance, not elsewhere classified; E78.2 Mixed hyperlipidemia; N28.9 Disorder of kidney and ureter, unspecified; M47.812 Spondylosis without myelopathy or radiculopathy, cervical region; L30.9 Dermatitis, unspecified; R79.89 Other specified abnormal findings of blood chemistry; R29.6 Repeated falls; F41.9 Anxiety disorder, unspecified; Z20.822 Contact with and (suspected) exposure to COVID-19; Z87.891 Personal history of nicotine dependence; Z85.118 Personal history of other malignant neoplasm of bronchus and lung; Z90.2 Acquired absence of lung [part of]; Z80.0 Family history of malignant neoplasm of digestive organs; Z80.3 Family history of malignant neoplasm of breast
CPT/HCPCS: 36415; 36600; 71045; 71275; 78580; 80048; 80053; 82805; 83605; 83880; 84484; 85025; 85027; 85380; 87040; 87426; 87804; 93005; 93306; 93970; 94618; 94640; 96361; 96374; 97110; 97116; 97161; 97165; 97530; 97535; 99285; A9270; A9540; C9803; J0696; J1650; J2060; J2920; J2930; J7030; J7512; Q9967; U0003; U0005

== ENCOUNTER 2020-12-03 11:47 | Emergency (ER) | payer MEDICARE, SELFPAY ==
--- NOTE | 2020-12-03 11:55 | PC.NURSE ---
Daughters report that patient is DNR and that they wish to stop all care at this time.
--- NOTE | 2020-12-03 11:58 | PC.NURSE ---
Patient extubated at this time, comfort measures started. Daughters at bedside
[2020-12-03] MEDS: LORazepam INJ (*CRX) 2 MG/ML VIAL (12:05)
[2020-12-03] MEDS: MORPHINE SULFATE (*CRX) 4 MG/ML INJ (12:05)
--- NOTE | 2020-12-03 12:24 | ED.CPR ---
HPI - CPR General Chief Complaint: Cardiac Arrest/CPR Stated Complaint: CODE BLUE Time Seen by Provider: 12/03/20 12:24 History of Present Illness HPI narrative: 75 yo female brought in by EMS from PCP office in cardiac arrest. EMS was called to their office after she had a syncopal episode. She was awake when EMS arrived, but had a witnessed arrest. CPR was initiated. She was noted to be in PEA. on recheck she was noted to have a weak extremely bradycardic pulse. CPR was continued.Multiple doses of epi were given. On arrival to the ED She had a pulse, bt it was thready, slow, and weak. CPR was continued. After speaking with her family the fence manufacture supervisor determined that she was DNR. I confirmed this. Resuscitative measures were stopped. She still had some independent respiratory effort so her ET tube was removed. She was given morphine and ativan to make her more comfortable. She was declared at 1213. Related Data Home Medications Medication Instructions Recorded Confirmed pentoxifylline 400 mg 400 mg PO TID 10/07/19 11/19/20 tablet,extended release amiodarone 200 mg PO DAILY 11/13/20 11/19/20 pravastatin 40 mg PO DAILY 11/13/20 11/19/20 Allergies Allergy/AdvReac Type Severity Reaction Status Date / Time ciprofloxacin Allergy Severe Rash Verified 07/27/20 14:35 amoxicillin Allergy Unknown Rash Verified 07/27/20 14:35 sulfanilamide Allergy Unknown Rash Verified 07/27/20 14:35 Review of Systems Review of Systems: ROS unobtainable: Yes unobtainable due to medical condition and unobtainable due to mental status PMFSH Past Medical History Medical History Abnormal gait Cervical spondylosis Confusion Decreased renal function Eczema Falls frequently Head injury due to trauma Knee pain, left Family History Family History Mother Hypertension Carcinoma of colon Family history of diabetes mellitus in first degree relative Family history of coronary artery disease Diabetes mellitus, Onset Age: 74 Father Diabetes mellitus, Onset Age: 57 Sibling Diabetes mellitus Family history of malignant neoplasm, Onset Age: 75 Other Family history of malignant neoplasm of breast in first degree relative Social History Social History Smoking packs per day: 30 Smoking cigarettes per day: 600.0 Years smoked: 56 Smoking pack-years: 1680.00 Smoking status: Former smoker Tobacco type: cigarettes Second hand tobacco smoke exposure: Yes Smoking end date: 11/06/03 Additional smoking assessment comments: 1-2 packs daily Alcohol intake: never Substance use: never Substance use type: does not use Gender identity (if verbalized by the patient): Female Spiritual care concerns: No Exam Const: Other: severe distress. unresponsive HENMT: Other: ET tube in place. Eyes: Other: Pupil fixed Resp: Other: bilateral breath sounds with bagging Cardio: Other: Thready irregular central pulses Skin: General skin exam: pallor Neuro: Other: Unresponsive Extrem: General: normal to inspection Other: Cool to touch Course Reevaluation(s) Reevaluation #1: No pulse No respiratory effort Unresponsive to pain aystole on the monitor Date: 12/03/20 Time: 12:13 MDM - Cardiac Arrest/CPR Differential Diagnosis Differential diagnosis: Likely acute massive pulmonary embolism, acute respiratory failure, acute myocardial infarction and cardiac arrest Critical Care Time Critical Care Time Critical Care Time: Yes Total Critical Care Time: 40 Discharge Plan Discharge Clinical Impression: Cardiac arrest Patient Disposition: Condition: Prescriptions: No Action pravastatin 40 mg tablet 40 mg PO DAILY RF: 0 amiodarone 200 mg tablet 200 mg PO DAILY RF: 0 sodium ch
--- NOTE | 2020-12-03 12:41 | PC.NURSE ---
patient going to [facility] per daughters request
--- NOTE | 2020-12-03 12:44 | PC.NURSE ---
Wine Specialist Called at this time. [phone]
--- NOTE | 2020-12-03 12:52 | PC.NURSE ---
[employer] Released Body at this time.
--- NOTE | 2020-12-03 14:08 | PC.NURSE ---
[facility] contacted and will return call about picking up patient.
== END 2020-12-03 15:29 | disposition expired ==
PROVIDERS: Emergency Provider Emergency Medicine; Family Provider Family Medicine; PCP Family Medicine
DX: I46.9 Cardiac arrest, cause unspecified (principal); Z87.891 Personal history of nicotine dependence; Z66 Do not resuscitate
CPT/HCPCS: 92950; 96374; 96375; 99285; J0171; J2060; J2270